=== PATIENT | male | born 1940 | race Caucasian/White ===

== ENCOUNTER 2018-12-01 10:47 | Observation (INO) | payer MEDICARE, SELFPAY ==
[2018-12-01] VITALS (10 sets, daily range): BP systolic 111–143; BP diastolic 58–104; PULSE 62–79; RESP 13–21; TEMP 36.8–37.1; O2SAT 94–100; BMI 27.6
--- NOTE | 2018-12-01 | DI.RAD.S_ITS ---
PROCEDURE: XR ABDOMEN MIN 2V INDICATIONS: diarrhea TECHNIQUE: 2 views of the abdomen were acquired. COMPARISON: [facility], CR, XR CHEST 1V, 12/01/2018, 11:04. FINDINGS: Surgical changes and devices: None. Bowel: No pneumoperitoneum. The bowel gas pattern is abnormal with scattered large and small bowel air-fluid levels, without free air. Soft tissues: No masses; visualized solid organ contours appear normal in size. No suspicious abdominal calcifications. Bones: No suspicious bony abnormalities. IMPRESSION: Scattered nonspecific air-fluid levels within the large and small bowel. The finding is not associated with free air or pneumatosis or evidence of definite intestinal obstruction. Rather, ileus is the likely cause. If underlying peritoneal space infection or colitis is clinically suspected followup by contrast-enhanced CT scanning may be warranted. Dictated by: Edwin Alatorre M.D. on 12/01/2018 at 17:07 Approved by: Edwin Alatorre M.D. on 12/01/2018 at 17:08
--- NOTE | 2018-12-01 11:01 | DI.RAD.S_ITS ---
PROCEDURE: XR CHEST 1V INDICATIONS: suspected sepsis TECHNIQUE: One view of the chest was acquired. COMPARISON: None. FINDINGS: Surgical changes and devices: None. Lungs and pleura: No pleural effusions or pneumothorax. Lungs are clear. Mediastinum: Mediastinal contours appear normal. Heart size is normal. Bones and chest wall: No suspicious bony lesions. Overlying soft tissues appear unremarkable. IMPRESSION: No acute process. Dictated by: Vi Pleitez M.D. on 12/01/2018 at 11:17 Approved by: Vi Pleitez M.D. on 12/01/2018 at 11:17
--- NOTE | 2018-12-01 11:14 | PC.NURSE ---
Pts called, she stated that she will be taking the next fairy form [place] around 1230, she should be here around 1330, cell phone number is , stated that his daughter Desirae is driving up and should be here around 1230, Desirae's cell phone is
--- NOTE | 2018-12-01 11:19 | ED.NAVMDI ---
HPI - Nausea/Vomiting/Diarrhea General Chief complaint: Nausea/Vomiting/Diarrhea Stated complaint: Diarrhea for two days Time Seen by Provider: 12/01/18 10:54 Source: patient Mode of arrival: ambulatory Limitations: no limitations History of Present Illness HPI Narrative: Patient was sent here from [facility], after being found to have copious diarrhea for the last 3 days. Patient was seen in clinic for this and found to have an elevated lactic acid level, and so was airlifted here. Patient has some degree of dementia, and so history is limited by this. His family is not yet arrived. The patient denies abdominal pain, nausea, vomiting, chest pain, shortness of breath, cough, or fevers. He has not noticed blood in his stools. He is not certain whether he was exposed to anybody else with similar symptoms. No other complaints this time. Related Data Home Medications Medication Instructions Recorded Confirmed aspirin 81 mg PO QPM #0 11/04/16 12/01/18 mirabegron [Myrbetriq] 50 mg PO QAM #0 11/04/16 12/01/18 acetaminophen 325 mg PO PRN PRN #0 12/02/16 12/01/18 cholecalciferol (vitamin D3) 5,000 iu PO QPM #0 12/02/16 12/01/18 [Vitamin D3] Fiber (psyllium husk) 2 tab PO BEDTIME 12/01/18 12/01/18 amlodipine 5 mg PO QAM 12/01/18 12/01/18 fenofibrate nanocrystallized 48 mg PO QPM 12/01/18 12/01/18 lisinopril 20 mg PO BEDTIME 12/01/18 12/01/18 melatonin 5 mg PO BEDTIME 12/01/18 12/01/18 polyethylene glycol 3350 [Miralax] 17 g PO DAILY PRN 12/01/18 12/01/18 tamsulosin [Flomax] 0.8 mg PO BEDTIME 12/01/18 12/01/18 venlafaxine 75 mg PO QAM 12/01/18 12/01/18 venlafaxine 150 mg PO QAM 12/01/18 12/01/18 Previous Rx's Medication Instructions Recorded chlorthalidone 25 mg PO QAM #90 tab 12/10/16 levothyroxine 0.175 mg PO QAM #90 tab 07/06/17 Allergies Allergy/AdvReac Type Severity Reaction Status Date / Time solifenacin [From [facility]] AdvReac Unknown change in Verified 12/01/18 11:22 rai status Review of Systems Constitutional Denies chills, Denies fever(s), Denies lethargy and Denies weakness Eyes Denies change in vision, Denies eye discharge, Denies irritation and Denies loss of vision ENT Ears, Nose, Mouth, and Throat: Denies change in voice, Denies neck pain and Denies sore throat Cardiovascular Denies chest pain, Denies irregular heart rhythm, Denies lightheadedness, Denies palpitations, Denies dyspnea, Denies dyspnea on exertion and Denies orthopnea Respiratory Denies cough, Denies dyspnea, Denies dyspnea on exertion and Denies wheezing Gastrointestinal Gastrointestinal: Denies abdominal pain, Denies change in bowel habits, Reports diarrhea, Denies nausea and Denies vomiting Genitourinary Denies hematuria, Denies flank pain, Denies urinary incontinence and Denies urinary urgency Musculoskeletal Denies neck pain Integumentary/Breasts Denies pruritus, Denies erythema, Denies rash and Denies wounds Neurologic Denies confusion, Denies loss of vision and Denies weakness Psychiatric Denies anxiety, Denies confusion, Denies depression, Denies homicidal ideation and Denies suicidal ideation Endocrine Denies palpitations Hematologic/Lymphatic Denies easy bruising Allergic/Immunologic Denies wheezing PFSH Medical History Multiple sclerosis (Acute) HTN (hypertension) (Acute) Dementia (Acute) Surgical History No pertinent past surgical history (Acute) Social History household members: spouse Smoking Status: Unknown if ever smoked Comment: Lives at home with Exam Initial Vital Signs Initial Vital Signs: Vital Signs Temperature 98.2 F 12/01/18 09:57 Pulse Rate 76 12/01/18 09:57 Respiratory Rate 14 12/01/18 09:57 Blood Pressure 140/72 12/01/18 09:57 Pulse Oximetry 94 12/01/18 09:57 Const General: cooperative and well developed Nutritional Appearance: well nourished Orientation: alert, awake and not confused [facility] Head: normocephalic and atraumatic Ears: external ears normal and TM's normal bilaterally Nose: external nose normal and No nasal discharge Face and sinus: sinuses nontender, face symmetric, no sinus tenderness and No dry mucous membranes Mouth: oral mucosae normal and moist mucous membranes Teeth and gingiva: dentition normal Throat: tonsils normal and uvula midline Eyes General: appearance normal, both eyes and all related structures Eyelids: eyelids normal Conjunctivae: conjunctivae normal Sclera: sclerae normal Pupils: PERRL EOM: EOM intact bilaterally Neck Neck: normal visual inspection, trachea midline, No lymphadenopathy, No midline deformity and No JVD Lymphatic: No lymphedema Chest Chest: normal inspection of the chest Resp Effort & Inspection: normal respiratory effort, able to speak in complete sentences, no respiratory distress and no use of accessory muscles Auscultation: clear to auscultation bilaterally, no rales, no rhonchi and no wheezes Cardio Rate: regular rate Rhythm: regular rhythm Heart Sounds: no click, no gallops, no murmurs and no rubs Pulses: normal peripheral pulses GI Inspection: non-distended Palpation: soft, no hepatosplenomegaly, No guarding, No pulsatile mass and No tender Auscultation: normal bowel sounds Back/Spine/Pelvis Back: No CVA tenderness Cervical Spine: cervical ROM normal and No pain with cervical ROM Thoracic/Lumbar Spine: thoracic and lumbar spine normal to inspection Skin General: no rashes or lesions noted, No jaundice and No petechiae Neuro General: alert, awake and no focal motor deficits Speech: speech normal Motor: muscle tone normal throughout Extrem General: full ROM, no clubbing, cyanosis or edema, no pedal edema and no calf tenderness Psych Appearance: well kempt Mental Status: mental status grossly normal Attitude: cooperative Thought Content: normal and suicidality Judgment: judgment good Course Course Narrative: Patient was worked up with labs and treated with IV fluids. He was found to be mildly hypokalemic, and a leukocytosis at 13. The patient was weak and unable to stand up, and although his labs were unremarkable, I felt he should be admitted to the hospital. I spoke with Dr. Hsu regarding this, and she did accept the patient for admission. Orders Ordered: ED Orders 12/01/18 10:45 GI Panel Stat 12/01/18 11:01 XR chest 1V Stat 12/01/18 11:40 Complete Blood Count AUTO DIFF Stat Comprehensive Metabolic Panel Stat Lipase Stat Partial Thromboplastin Time Stat Procalcitonin Stat Prothrombin Time INR Stat Thyroid Stimulating Hormone Stat 12/01/18 11:47 Blood Culture Stat 12/01/18 15:25 MRSA PCR Urgent 12/01/18 15:47 Education, smoking cessation ONGOING 12/02/18 05:00 Complete Blood Count AUTO DIFF Routine Comprehensive Metabolic Panel Routine Acetaminophen (Tylenol) 650 mg PO Q6HR PRN PRN Reason: As Needed for Fever/Mild Pain Hydrocodone Bitart/Acetaminophen ([place] 5/325) 1 tab PO Q4HR PRN PRN Reason: Pain, Moderate (4-6) Amlodipine Besylate (Norvasc) 5 mg PO DAILY [facility] Aspirin (Aspirin Ec) 81 mg PO DAILY [facility] Enoxaparin Sodium (Lovenox) 40 mg SUBCUT DAILY [facility] Fenofibrate (Fenofibrate) 48 mg PO DAILY [facility] Lactated Ringer's (Lactated Ringers) 1,000 mls @ 100 mls/hr IV CONT KELLI Last Admin: 12/01/18 17:36 Dose: 100 mls/hr Potassium Chloride 40 meq/ (Sodium Chloride) 520 mls @ 130 mls/hr IV NOW ONE Stop: 12/01/18 20:29 Last Admin: 12/01/18 17:37 Dose: 130 mls/hr Levothyroxine Sodium (Synthroid) 100 mcg PO 0600 [facility] Levothyroxine Sodium (Synthroid) 75 mcg PO 0600 [facility] Lisinopril (Zestril) 20 mg PO DAILY [facility] Melatonin (Melatonin) 6 mg PO BEDTIME KELLI Non-Formulary Medication ( Myrbetriq 50 Mg) 50 mg PO DAILY [facility] Ondansetron HCl (Zofran) 4 mg IV Q8HR PRN PRN Reason: Nausea And Vomiting Tamsulosin HCl (Flomax) 0.8 mg PO DAILY [facility] Venlafaxine HCl (Effexor Xr) 225 mg PO DAILY [facility] Discontinued Medications Sodium Chloride (Normal Saline 0.9%) 1,000 mls @ 250 mls/hr IV BOLUS ONE Stop: 12/01/18 15:01 Last Infusion: 12/01/18 14:53 Dose: 0 mls/hr Admin: 12/01/18 11:21 Dose: 250 mls/hr Sodium Chloride (Normal Saline 0.9%) 1,000 mls @ 1,000 mls/hr IV BOLUS ONE Stop: 12/01/18 12:17 Last Infusion: 12/01/18 12:28 Dose: 0 mls/hr Admin: 12/01/18 11:23 Dose: 1,000 mls/hr Ondansetron HCl (Zofran) 4 mg IV NOW ONE Stop: 12/01/18 11:33 Last Admin: 12/01/18 11:33 Dose: 4 mg Vital Signs - 8 hr 12/01/18 09:57 12/01/18 11:00 12/01/18 11:30 Temperature 98.2 F Pulse Rate 76 78 70 Respiratory Rate 14 18 14 Blood Pressure 140/72 Blood Pressure [Right Arm] 136/68 129/69 Pulse Oximetry 94 96 98 12/01/18 12:00 12/01/18 12:30 12/01/18 13:00 Temperature Pulse Rate 70 73 71 Respiratory Rate 13 20 16 Blood Pressure Blood Pressure [Right Arm] 135/64 111/58 L 126/98 H Pulse Oximetry 100 98 96 12/01/18 14:47 12/01/18 15:47 12/01/18 16:00 Temperature 98.7 F Pulse Rate 79 72 Respiratory Rate 20 21 Blood Pressure 140/104 H 139/85 Blood Pressure [Right Arm] Pulse Oximetry 97 97 MDM - Nausea/Vomiting/Diarrhea Medical Records Attestation: I reviewed the patient's medical records. Lab Data Attestation: I reviewed the patient's lab results. Result diagrams: 12/01/18 11:40 12/01/18 11:40 Lab Results 12/01/18 12/01/18 12/01/18 Range/Units 10:45 11:40 11:40 WBC 13.0 H (4.5-11.0) X10^3/uL RBC 4.49 L (4.5-5.9) X10^6/uL Hgb 14.0 (13.5-17.5) g/dL Hct 40.3 L (41-53) % MCV 89.9 (80-100) fL MCH 31.1 (26-34) PG MCHC 34.6 (30-36) % RDW 13.4 (11.6-14.8) % Plt Count 282 (150-400) X10^3/uL Neut % (Auto) 89.3 H (50-75) % Lymph % (Auto) 4.3 L (25-40) % [place] % (Auto) 5.1 (3-14) % Eos % (Auto) 1.2 L (2-4) % Baso % (Auto) 0.1 (0-2) % Neut # (Auto) 41366 H (3081-0271) /uL Lymph # (Auto) 600 L (4287-4158) /uL [place] # (Auto) 700 (0-900) /uL Eos # (Auto) 200 (0-450) /uL Baso # (Auto) 0 (0-100) /uL PT 12.7 (10.1-12.7) SECONDS INR 1.1 (0.9-1.3) APTT 26 L (26.4-36.2) SECONDS Sodium (137-145) mmol/L Potassium (3.4-5.1) mmol/L Chloride (98-107) mmol/L Carbon Dioxide (22-32) mmol/L BUN (9-20) mg/dL Creatinine (0.66-1.25) mg/dL Estimated GFR (>60) mL/min BUN/Creatinine Ratio (6-22) Glucose (80-110) mg/dL Lactate (0.7-2.1) mmol/L Calcium (8.4-10.2) mg/dL Total Bilirubin (0.2-1.3) mg/dL AST (17-59) IU/L ALT (21-72) IU/L Alkaline Phosphatase (38-126) U/L Total Protein (6.3-8.2) g/dL Albumin (3.5-5.0) g/dL Globulin (1.7-4.1) g/dL Albumin/Globulin Ratio (1.0-2.8) Lipase (23-300) U/L Procalcitonin (<0.5) ng/mL TSH (0.47-4.68) uIU/mL Nasal Screen MRSA (PCR) (Negative) Stl C. cayetanensis PCR Not detected (Not Detect) Stool Rotavirus (PCR) Not detected (Not Detect) Stool Adenovirus (PCR) Not detected (Not Detect) Stool Astrovirus (PCR) Not detected (Not Detect) Stool Cryptosporidium PCR Not detected (Not Detect) Stl E.coli Shiga Tox PCR Not detected (Not Detect) St Sh/Enteroin Ecoli PCR Not detected (Not Detect) Stool E coli O157 PCR Not detected (Not Detect) Stl Enterotoxigenic E PCR Not detected (Not Detect) Stool EPEC (PCR) Not detected (Not Detect) Stl E. histolytica PCR Not detected (Not Detect) Stool Giardia Lamblia PCR Not detected (Not Detect) Stool Sapovirus (PCR) Not detected (Not Detect) Stl P. shigelloides PCR Not detected (Not Detect) St Y.enterocolitica PCR Not detected (Not Detect) Stool Vibrio (PCR) Not detected (Not Detect) Stl Vibrio cholerae PCR Not detected (Not Detect) Stl Enteroaggr Ecoli PCR Not detected (Not Detect) Stl Norovirus GI/GII PCR Not detected (Not Detect) Campylobacter (PCR) Not detected (Not Detect) C. difficile Tox (PCR) Not detected (Not Detect) Salmonella (PCR) Not detected (Not Detect) 12/01/18 12/01/18 12/01/18 Range/Units 11:40 11:40 11:40 WBC (4.5-11.0) X10^3/uL RBC (4.5-5.9) X10^6/uL Hgb (13.5-17.5) g/dL Hct (41-53) % MCV (80-100) fL MCH (26-34) PG MCHC (30-36) % RDW (11.6-14.8) % Plt Count (150-400) X10^3/uL Neut % (Auto) (50-75) % Lymph % (Auto) (25-40) % [place] % (Auto) (3-14) % Eos % (Auto) (2-4) % Baso % (Auto) (0-2) % Neut # (Auto) (5594-0799) /uL Lymph # (Auto) (6814-7640) /uL [place] # (Auto) (0-900) /uL Eos # (Auto) (0-450) /uL Baso # (Auto) (0-100) /uL PT (10.1-12.7) SECONDS INR (0.9-1.3) APTT (26.4-36.2) SECONDS Sodium 138 (137-145) mmol/L Potassium 3.3 L (3.4-5.1) mmol/L Chloride 97 L (98-107) mmol/L Carbon Dioxide 28 (22-32) mmol/L BUN 37 H (9-20) mg/dL Creatinine 1.50 H (0.66-1.25) mg/dL Estimated GFR 45.4 L (>60) mL/min BUN/Creatinine Ratio 24.7 H (6-22) Glucose 191 H (80-110) mg/dL Lactate (0.7-2.1) mmol/L Calcium 9.4 (8.4-10.2) mg/dL Total Bilirubin 0.6 (0.2-1.3) mg/dL AST 22 (17-59) IU/L ALT 22 (21-72) IU/L Alkaline Phosphatase 52 (38-126) U/L Total Protein 7.8 (6.3-8.2) g/dL Albumin 4.4 (3.5-5.0) g/dL Globulin 3.4 (1.7-4.1) g/dL Albumin/Globulin Ratio 1.3 (1.0-2.8) Lipase 22 L (23-300) U/L Procalcitonin 0.33 (<0.5) ng/mL TSH 7.86 H (0.47-4.68) uIU/mL Nasal Screen MRSA (PCR) (Negative) Stl C. cayetanensis PCR (Not Detect) Stool Rotavirus (PCR) (Not Detect) Stool Adenovirus (PCR) (Not Detect) Stool Astrovirus (PCR) (Not Detect) Stool Cryptosporidium PCR (Not Detect) Stl E.coli Shiga Tox PCR (Not Detect) St Sh/Enteroin Ecoli PCR (Not Detect) Stool E coli O157 PCR (Not Detect) Stl Enterotoxigenic E PCR (Not Detect) Stool EPEC (PCR) (Not Detect) Stl E. histolytica PCR (Not Detect) Stool Giardia Lamblia PCR (Not Detect) Stool Sapovirus (PCR) (Not Detect) Stl P. shigelloides PCR (Not Detect) St Y.enterocolitica PCR (Not Detect) Stool Vibrio (PCR) (Not Detect) Stl Vibrio cholerae PCR (Not Detect) Stl Enteroaggr Ecoli PCR (Not Detect) Stl Norovirus GI/GII PCR (Not Detect) Campylobacter (PCR) (Not Detect) C. difficile Tox (PCR) (Not Detect) Salmonella (PCR) (Not Detect) 12/01/18 12/01/18 Range/Units 15:25 Unknown WBC (4.5-11.0) X10^3/uL RBC (4.5-5.9) X10^6/uL Hgb (13.5-17.5) g/dL Hct (41-53) % MCV (80-100) fL MCH (26-34) PG MCHC (30-36) % RDW (11.6-14.8) % Plt Count (150-400) X10^3/uL Neut % (Auto) (50-75) % Lymph % (Auto) (25-40) % [place] % (Auto) (3-14) % Eos % (Auto) (2-4) % Baso % (Auto) (0-2) % Neut # (Auto) (5445-1903) /uL Lymph # (Auto) (6106-8022) /uL [place] # (Auto) (0-900) /uL Eos # (Auto) (0-450) /uL Baso # (Auto) (0-100) /uL PT (10.1-12.7) SECONDS INR (0.9-1.3) APTT (26.4-36.2) SECONDS Sodium (137-145) mmol/L Potassium (3.4-5.1) mmol/L Chloride (98-107) mmol/L Carbon Dioxide (22-32) mmol/L BUN (9-20) mg/dL Creatinine (0.66-1.25) mg/dL Estimated GFR (>60) mL/min BUN/Creatinine Ratio (6-22) Glucose (80-110) mg/dL Lactate 2.1 (0.7-2.1) mmol/L Calcium (8.4-10.2) mg/dL Total Bilirubin (0.2-1.3) mg/dL AST (17-59) IU/L ALT (21-72) IU/L Alkaline Phosphatase (38-126) U/L Total Protein (6.3-8.2) g/dL Albumin (3.5-5.0) g/dL Globulin (1.7-4.1) g/dL Albumin/Globulin Ratio (1.0-2.8) Lipase (23-300) U/L Procalcitonin (<0.5) ng/mL TSH (0.47-4.68) uIU/mL Nasal Screen MRSA (PCR) Negative for mrsa (Negative) Stl C. cayetanensis PCR (Not Detect) Stool Rotavirus (PCR) (Not Detect) Stool Adenovirus (PCR) (Not Detect) Stool Astrovirus (PCR) (Not Detect) Stool Cryptosporidium PCR (Not Detect) Stl E.coli Shiga Tox PCR (Not Detect) St Sh/Enteroin Ecoli PCR (Not Detect) Stool E coli O157 PCR (Not Detect) Stl Enterotoxigenic E PCR (Not Detect) Stool EPEC (PCR) (Not Detect) Stl E. histolytica PCR (Not Detect) Stool Giardia Lamblia PCR (Not Detect) Stool Sapovirus (PCR) (Not Detect) Stl P. shigelloides PCR (Not Detect) St Y.enterocolitica PCR (Not Detect) Stool Vibrio (PCR) (Not Detect) Stl Vibrio cholerae PCR (Not Detect) Stl Enteroaggr Ecoli PCR (Not Detect) Stl Norovirus GI/GII PCR (Not Detect) Campylobacter (PCR) (Not Detect) C. difficile Tox (PCR) (Not Detect) Salmonella (PCR) (Not Detect) Imaging Data Chest x-ray: Attestation: I personally reviewed and interpreted this imaging study as follows: My impression: Negative Radiologist's impression: PROCEDURE: XR CHEST 1V INDICATIONS: suspected sepsis TECHNIQUE: One view of the chest was acquired. COMPARISON: None. FINDINGS: Surgical changes and devices: None. Lungs and pleura: No pleural effusions or pneumothorax. Lungs are clear. Mediastinum: Mediastinal contours appear normal. Heart size is normal. Bones and chest wall: No suspicious bony lesions. Overlying soft tissues appear unremarkable. IMPRESSION: No acute process. Dictated by: Vi Pleitez M.D. on 12/01/2018 at 11:17 Approved by: Vi Pleitez M.D. on 12/01/2018 at 11:17 ECG Data Attestation: I personally reviewed and interpreted this ECG as follows: (See below) Interpretation: Twelve lead EKG performed December 01, 2018 at 11:01 a.m., as follows: Regular ventricular rhythm with a rate of 76 beats per minute OH interval 172 millisecond QRS duration 117 milliseconds QTC interval [address] T wave changes No ectopy Interpretation: Sinus rhythm with sinus arrhythmia; moderate intraventricular conduction delay; nonspecific T-wave abnormality; borderline EKG as interpreted by ED MD. Discharge Plan Departure Patient Disposition: Admitted As Inpatient Clinical Impression: Diarrhea, Generalized weakness Discharge Date/Time: 12/01/18 14:58 Interventions: ED Discharge Assessment Last Done: 12/01/18 14:47 Admit Date/Time: 12/01/18 14:29 Admit Provider: Chula Hsu
[2018-12-01] MEDS: SODIUM CHLORIDE 0.9% 1,000 ML 250 ML IV (11:21)
[2018-12-01] MEDS: SODIUM CHLORIDE 0.9% 1,000 ML 1000 ML IV (11:23)
--- NOTE | 2018-12-01 11:24 | ED_ITS ---
HPI - Nausea/Vomiting/Diarrhea General Chief complaint: Nausea/Vomiting/Diarrhea Stated complaint: Diarrhea for two days Time Seen by Provider: 12/01/18 10:54 Source: patient Mode of arrival: ambulatory Limitations: no limitations History of Present Illness HPI Narrative: Patient was sent here from [facility], after being found to have copious diarrhea for the last 3 days. Patient was seen in clinic for this and found to have an elevated lactic acid level, and so was airlifted here. Patient has some degree of dementia, and so history is limited by this. His family is not yet arrived. The patient denies abdominal pain, nausea, vomiting , chest pain, shortness of breath, cough, or fevers. He has not noticed blood in his stools. He is not certain whether he was exposed to anybody else with similar symptoms. No other complaints this time. Related Data Home Medications Medication Instructions Recorded Confirmed aspirin 81 mg PO QPM #0 11/04/16 12/01/18 mirabegron [Myrbetriq] 50 mg PO QAM #0 11/04/16 12/01/18 acetaminophen 325 mg PO PRN PRN #0 12/02/16 12/01/18 cholecalciferol (vitamin D3) 5,000 iu PO QPM #0 12/02/16 12/01/18 [Vitamin D3] Fiber (psyllium husk) 2 tab PO BEDTIME 12/01/18 12/01/18 amlodipine 5 mg PO QAM 12/01/18 12/01/18 fenofibrate nanocrystallized 48 mg PO QPM 12/01/18 12/01/18 lisinopril 20 mg PO BEDTIME 12/01/18 12/01/18 melatonin 5 mg PO BEDTIME 12/01/18 12/01/18 polyethylene glycol 3350 [Miralax] 17 g PO DAILY PRN 12/01/18 12/01/18 tamsulosin [Flomax] 0.8 mg PO BEDTIME 12/01/18 12/01/18 venlafaxine 75 mg PO QAM 12/01/18 12/01/18 venlafaxine 150 mg PO QAM 12/01/18 12/01/18 Previous Rx's Medication Instructions Recorded chlorthalidone 25 mg PO QAM #90 tab 12/10/16 levothyroxine 0.175 mg PO QAM #90 tab 07/06/17 Allergies Allergy/AdvReac Type Severity Reaction Status Date / Time solifenacin [From VESICARE] AdvReac Unknown change in Verified 12/01/18 11:22 rai status Review of Systems Constitutional Denies chills, Denies fever(s), Denies lethargy and Denies weakness Eyes Denies change in vision, Denies eye discharge, Denies irritation and Denies loss of vision ENT Ears, Nose, Mouth, and Throat: Denies change in voice, Denies neck pain and Denies sore throat Cardiovascular Denies chest pain, Denies irregular heart rhythm, Denies lightheadedness, Denies palpitations, Denies dyspnea, Denies dyspnea on exertion and Denies orthopnea Respiratory Denies cough, Denies dyspnea, Denies dyspnea on exertion and Denies wheezing Gastrointestinal Gastrointestinal: Denies abdominal pain, Denies change in bowel habits, Reports diarrhea, Denies nausea and Denies vomiting Genitourinary Denies hematuria, Denies flank pain, Denies urinary incontinence and Denies urinary urgency Musculoskeletal Denies neck pain Integumentary/Breasts Denies pruritus, Denies erythema, Denies rash and Denies wounds Neurologic Denies confusion, Denies loss of vision and Denies weakness Psychiatric Denies anxiety, Denies confusion, Denies depression, Denies homicidal ideation and Denies suicidal ideation Endocrine Denies palpitations Hematologic/Lymphatic Denies easy bruising Allergic/Immunologic Denies wheezing PFSH Medical History Multiple sclerosis (Acute) HTN (hypertension) (Acute) Dementia (Acute) Surgical History No pertinent past surgical history (Acute) Social History household members: spouse Smoking Status: Unknown if ever smoked Comment: Lives at home with Exam Initial Vital Signs Initial Vital Signs: Vital Signs Temperature 98.2 F 12/01/18 09:57 Pulse Rate 76 12/01/18 09:57 Respiratory Rate 14 12/01/18 09:57 Blood Pressure 140/72 12/01/18 09:57 Pulse Oximetry 94 12/01/18 09:57 Const General: cooperative and well developed Nutritional Appearance: well nourished Orientation: alert, awake and not confused [facility] Head: normocephalic and atraumatic Ears: external ears normal and TM's normal bilaterally Nose: external nose normal and No nasal discharge Face and sinus: sinuses nontender, face symmetric, no sinus tenderness and No dry mucous membranes Mouth: oral mucosae normal and moist mucous membranes Teeth and gingiva: dentition normal Throat: tonsils normal and uvula midline Eyes General: appearance normal, both eyes and all related structures Eyelids: eyelids normal Conjunctivae: conjunctivae normal Sclera: sclerae normal Pupils: PERRL EOM: EOM intact bilaterally Neck Neck: normal visual inspection, trachea midline, No lymphadenopathy, No midline deformity and No JVD Lymphatic: No lymphedema Chest Chest: normal inspection of the chest Resp Effort & Inspection: normal respiratory effort, able to speak in complete sentences, no respiratory distress and no use of accessory muscles Auscultation: clear to auscultation bilaterally, no rales, no rhonchi and no wheezes Cardio Rate: regular rate Rhythm: regular rhythm Heart Sounds: no click, no gallops, no murmurs and no rubs Pulses: normal peripheral pulses GI Inspection: non-distended Palpation: soft, no hepatosplenomegaly, No guarding, No pulsatile mass and No tender Auscultation: normal bowel sounds Back/Spine/Pelvis Back: No CVA tenderness Cervical Spine: cervical ROM normal and No pain with cervical ROM Thoracic/Lumbar Spine: thoracic and lumbar spine normal to inspection Skin General: no rashes or lesions noted, No jaundice and No petechiae Neuro General: alert, awake and no focal motor deficits Speech: speech normal Motor: muscle tone normal throughout Extrem General: full ROM, no clubbing, cyanosis or edema, no pedal edema and no calf tenderness Psych Appearance: well kempt Mental Status: mental status grossly normal Attitude: cooperative Thought Content: normal and suicidality Judgment: judgment good Course Course Narrative: Patient was worked up with labs and treated with IV fluids. He was found to be mildly hypokalemic, and a leukocytosis at 13. The patient was weak and unable to stand up, and although his labs were unremarkable, I felt he should be admitted to the hospital. I spoke with Dr. Hsu regarding this, and she did accept the patient for admission. Orders Ordered: ED Orders 12/01/18 10:45 GI Panel Stat 12/01/18 11:01 XR chest 1V Stat 12/01/18 11:40 Complete Blood Count AUTO DIFF Stat Comprehensive Metabolic Panel Stat Lipase Stat Partial Thromboplastin Time Stat Procalcitonin Stat Prothrombin Time INR Stat Thyroid Stimulating Hormone Stat 12/01/18 11:47 Blood Culture Stat 12/01/18 15:25 MRSA PCR Urgent 12/01/18 15:47 Education, smoking cessation ONGOING 12/02/18 05:00 Complete Blood Count AUTO DIFF Routine Comprehensive Metabolic Panel Routine Acetaminophen (Tylenol) 650 mg PO Q6HR PRN PRN Reason: As Needed for Fever/Mild Pain Hydrocodone Bitart/Acetaminophen ([place] 5/325) 1 tab PO Q4HR PRN PRN Reason: Pain, Moderate (4-6) Amlodipine Besylate (Norvasc) 5 mg PO DAILY [facility] Aspirin (Aspirin Ec) 81 mg PO DAILY [facility] Enoxaparin Sodium (Lovenox) 40 mg SUBCUT DAILY [facility] Fenofibrate (Fenofibrate) 48 mg PO DAILY [facility] Lactated Ringer's (Lactated Ringers) 1,000 mls @ 100 mls/hr IV CONT [facility] Last Admin: 12/01/18 17:36 Dose: 100 mls/hr Potassium Chloride 40 meq/ (Sodium Chloride) 520 mls @ 130 mls/hr IV NOW ONE Stop: 12/01/18 20:29 Last Admin: 12/01/18 17:37 Dose: 130 mls/hr Levothyroxine Sodium (Synthroid) 100 mcg PO 0600 [facility] Levothyroxine Sodium (Synthroid) 75 mcg PO 0600 [facility] Lisinopril (Zestril) 20 mg PO DAILY [facility] Melatonin (Melatonin) 6 mg PO BEDTIME [facility] Non-Formulary Medication ( Myrbetriq 50 Mg) 50 mg PO DAILY [facility] Ondansetron HCl (Zofran) 4 mg IV Q8HR PRN PRN Reason: Nausea And Vomiting Tamsulosin HCl (Flomax) 0.8 mg PO DAILY [facility] Venlafaxine HCl (Effexor Xr) 225 mg PO DAILY [facility] Discontinued Medications Sodium Chloride (Normal Saline 0.9%) 1,000 mls @ 250 mls/hr IV BOLUS ONE Stop: 12/01/18 15:01 Last Infusion: 12/01/18 14:53 Dose: 0 mls/hr Admin: 12/01/18 11:21 Dose: 250 mls/hr Sodium Chloride (Normal Saline 0.9%) 1,000 mls @ 1,000 mls/hr IV BOLUS ONE Stop: 12/01/18 12:17 Last Infusion: 12/01/18 12:28 Dose: 0 mls/hr Admin: 12/01/18 11:23 Dose: 1,000 mls/hr Ondansetron HCl (Zofran) 4 mg IV NOW ONE Stop: 12/01/18 11:33 Last Admin: 12/01/18 11:33 Dose: 4 mg Vital Signs - 8 hr 12/01/18 09:57 12/01/18 11:00 12/01/18 11:30 Temperature 98.2 F Pulse Rate 76 78 70 Respiratory Rate 14 18 14 Blood Pressure 140/72 Blood Pressure [Right Arm] 136/68 129/69 Pulse Oximetry 94 96 98 12/01/18 12:00 12/01/18 12:30 12/01/18 13:00 Temperature Pulse Rate 70 73 71 Respiratory Rate 13 20 16 Blood Pressure Blood Pressure [Right Arm] 135/64 111/58 L 126/98 H Pulse Oximetry 100 98 96 12/01/18 14:47 12/01/18 15:47 12/01/18 16:00 Temperature 98.7 F Pulse Rate 79 72 Respiratory Rate 20 21 Blood Pressure 140/104 H 139/85 Blood Pressure [Right Arm] Pulse Oximetry 97 97 MDM - Nausea/Vomiting/Diarrhea Medical Records Attestation: I reviewed the patient's medical records. Lab Data Attestation: I reviewed the patient's lab results. Result diagrams: 12/01/18 11:40 12/01/18 11:40 Lab Results 12/01/18 12/01/18 12/01/18 Range/Units 10:45 11:40 11:40 WBC 13.0 H (4.5-11.0) X10^3/uL RBC 4.49 L (4.5-5.9) X10^6/uL Hgb 14.0 (13.5-17.5) g/dL Hct 40.3 L (41-53) % MCV 89.9 (80-100) fL MCH 31.1 (26-34) PG MCHC 34.6 (30-36) % RDW 13.4 (11.6-14.8) % Plt Count 282 (150-400) X10^3/uL Neut % (Auto) 89.3 H (50-75) % Lymph % (Auto) 4.3 L (25-40) % Cook % (Auto) 5.1 (3-14) % Eos % (Auto) 1.2 L (2-4) % Baso % (Auto) 0.1 (0-2) % Neut # (Auto) 21924 H (5022-3127) /uL Lymph # (Auto) 600 L (8214-9487) /uL Cook # (Auto) 700 (0-900) /uL Eos # (Auto) 200 (0-450) /uL Baso # (Auto) 0 (0-100) /uL PT 12.7 (10.1-12.7) SECONDS INR 1.1 (0.9-1.3) APTT 26 L (26.4-36.2) SECONDS Sodium (137-145) mmol/L Potassium (3.4-5.1) mmol/L Chloride (98-107) mmol/L Carbon Dioxide (22-32) mmol/L BUN (9-20) mg/dL Creatinine (0.66-1.25) mg/dL Estimated GFR (>60) mL/min BUN/Creatinine Ratio (6-22) Glucose (80-110) mg/dL Lactate (0.7-2.1) mmol/L Calcium (8.4-10.2) mg/dL Total Bilirubin (0.2-1.3) mg/dL AST (17-59) IU/L ALT (21-72) IU/L Alkaline Phosphatase (38-126) U/L Total Protein (6.3-8.2) g/dL Albumin (3.5-5.0) g/dL Globulin (1.7-4.1) g/dL Albumin/Globulin Ratio (1.0-2.8) Lipase (23-300) U/L Procalcitonin (<0.5) ng/mL TSH (0.47-4.68) uIU/mL Nasal Screen MRSA (PCR) (Negative) Stl C. cayetanensis PCR Not detected (Not Detect) Stool Rotavirus (PCR) Not detected (Not Detect) Stool Adenovirus (PCR) Not detected (Not Detect) Stool Astrovirus (PCR) Not detected (Not Detect) Stool Cryptosporidium PCR Not detected (Not Detect) Stl E.coli Shiga Tox PCR Not detected (Not Detect) St Sh/Enteroin Ecoli PCR Not detected (Not Detect) Stool E coli O157 PCR Not detected (Not Detect) Stl Enterotoxigenic E PCR Not detected (Not Detect) Stool EPEC (PCR) Not detected (Not Detect) Stl E. histolytica PCR Not detected (Not Detect) Stool Giardia Lamblia PCR Not detected (Not Detect) Stool Sapovirus (PCR) Not detected (Not Detect) Stl P. shigelloides PCR Not detected (Not Detect) St Y.enterocolitica PCR Not detected (Not Detect) Stool Vibrio (PCR) Not detected (Not Detect) Stl Vibrio cholerae PCR Not detected (Not Detect) Stl Enteroaggr Ecoli PCR Not detected (Not Detect) Stl Norovirus GI/GII PCR Not detected (Not Detect) Campylobacter (PCR) Not detected (Not Detect) C. difficile Tox (PCR) Not detected (Not Detect) Salmonella (PCR) Not detected (Not Detect) 12/01/18 12/01/18 12/01/18 Range/Units 11:40 11:40 11:40 WBC (4.5-11.0) X10^3/uL RBC (4.5-5.9) X10^6/uL Hgb (13.5-17.5) g/dL Hct (41-53) % MCV (80-100) fL MCH (26-34) PG MCHC (30-36) % RDW (11.6-14.8) % Plt Count (150-400) X10^3/uL Neut % (Auto) (50-75) % Lymph % (Auto) (25-40) % Cook % (Auto) (3-14) % Eos % (Auto) (2-4) % Baso % (Auto) (0-2) % Neut # (Auto) (2798-5406) /uL Lymph # (Auto) (8138-1365) /uL Cook # (Auto) (0-900) /uL Eos # (Auto) (0-450) /uL Baso # (Auto) (0-100) /uL PT (10.1-12.7) SECONDS INR (0.9-1.3) APTT (26.4-36.2) SECONDS Sodium 138 (137-145) mmol/L Potassium 3.3 L (3.4-5.1) mmol/L Chloride 97 L (98-107) mmol/L Carbon Dioxide 28 (22-32) mmol/L BUN 37 H (9-20) mg/dL Creatinine 1.50 H (0.66-1.25) mg/dL Estimated GFR 45.4 L (>60) mL/min BUN/Creatinine Ratio 24.7 H (6-22) Glucose 191 H (80-110) mg/dL Lactate (0.7-2.1) mmol/L Calcium 9.4 (8.4-10.2) mg/dL Total Bilirubin 0.6 (0.2-1.3) mg/dL AST 22 (17-59) IU/L ALT 22 (21-72) IU/L Alkaline Phosphatase 52 (38-126) U/L Total Protein 7.8 (6.3-8.2) g/dL Albumin 4.4 (3.5-5.0) g/dL Globulin 3.4 (1.7-4.1) g/dL Albumin/Globulin Ratio 1.3 (1.0-2.8) Lipase 22 L (23-300) U/L Procalcitonin 0.33 (<0.5) ng/mL TSH 7.86 H (0.47-4.68) uIU/mL Nasal Screen MRSA (PCR) (Negative) Stl C. cayetanensis PCR (Not Detect) Stool Rotavirus (PCR) (Not Detect) Stool Adenovirus (PCR) (Not Detect) Stool Astrovirus (PCR) (Not Detect) Stool Cryptosporidium PCR (Not Detect) Stl E.coli Shiga Tox PCR (Not Detect) St Sh/Enteroin Ecoli PCR (Not Detect) Stool E coli O157 PCR (Not Detect) Stl Enterotoxigenic E PCR (Not Detect) Stool EPEC (PCR) (Not Detect) Stl E. histolytica PCR (Not Detect) Stool Giardia Lamblia PCR (Not Detect) Stool Sapovirus (PCR) (Not Detect) Stl P. shigelloides PCR (Not Detect) St Y.enterocolitica PCR (Not Detect) Stool Vibrio (PCR) (Not Detect) Stl Vibrio cholerae PCR (Not Detect) Stl Enteroaggr Ecoli PCR (Not Detect) Stl Norovirus GI/GII PCR (Not Detect) Campylobacter (PCR) (Not Detect) C. difficile Tox (PCR) (Not Detect) Salmonella (PCR) (Not Detect) 12/01/18 12/01/18 Range/Units 15:25 Unknown WBC (4.5-11.0) X10^3/uL RBC (4.5-5.9) X10^6/uL Hgb (13.5-17.5) g/dL Hct (41-53) % MCV (80-100) fL MCH (26-34) PG MCHC (30-36) % RDW (11.6-14.8) % Plt Count (150-400) X10^3/uL Neut % (Auto) (50-75) % Lymph % (Auto) (25-40) % Cook % (Auto) (3-14) % Eos % (Auto) (2-4) % Baso % (Auto) (0-2) % Neut # (Auto) (8961-8638) /uL Lymph # (Auto) (3445-8421) /uL Cook # (Auto) (0-900) /uL Eos # (Auto) (0-450) /uL Baso # (Auto) (0-100) /uL PT (10.1-12.7) SECONDS INR (0.9-1.3) APTT (26.4-36.2) SECONDS Sodium (137-145) mmol/L Potassium (3.4-5.1) mmol/L Chloride (98-107) mmol/L Carbon Dioxide (22-32) mmol/L BUN (9-20) mg/dL Creatinine (0.66-1.25) mg/dL Estimated GFR (>60) mL/min BUN/Creatinine Ratio (6-22) Glucose (80-110) mg/dL Lactate 2.1 (0.7-2.1) mmol/L Calcium (8.4-10.2) mg/dL Total Bilirubin (0.2-1.3) mg/dL AST (17-59) IU/L ALT (21-72) IU/L Alkaline Phosphatase (38-126) U/L Total Protein (6.3-8.2) g/dL Albumin (3.5-5.0) g/dL Globulin (1.7-4.1) g/dL Albumin/Globulin Ratio (1.0-2.8) Lipase (23-300) U/L Procalcitonin (<0.5) ng/mL TSH (0.47-4.68) uIU/mL Nasal Screen MRSA (PCR) Negative for mrsa (Negative) Stl C. cayetanensis PCR (Not Detect) Stool Rotavirus (PCR) (Not Detect) Stool Adenovirus (PCR) (Not Detect) Stool Astrovirus (PCR) (Not Detect) Stool Cryptosporidium PCR (Not Detect) Stl E.coli Shiga Tox PCR (Not Detect) St Sh/Enteroin Ecoli PCR (Not Detect) Stool E coli O157 PCR (Not Detect) Stl Enterotoxigenic E PCR (Not Detect) Stool EPEC (PCR) (Not Detect) Stl E. histolytica PCR (Not Detect) Stool Giardia Lamblia PCR (Not Detect) Stool Sapovirus (PCR) (Not Detect) Stl P. shigelloides PCR (Not Detect) St Y.enterocolitica PCR (Not Detect) Stool Vibrio (PCR) (Not Detect) Stl Vibrio cholerae PCR (Not Detect) Stl Enteroaggr Ecoli PCR (Not Detect) Stl Norovirus GI/GII PCR (Not Detect) Campylobacter (PCR) (Not Detect) C. difficile Tox (PCR) (Not Detect) Salmonella (PCR) (Not Detect) Imaging Data Chest x-ray: Attestation: I personally reviewed and interpreted this imaging study as follows: My impression: Negative Radiologist's impression: PROCEDURE: XR CHEST 1V INDICATIONS: suspected sepsis TECHNIQUE: One view of the chest was acquired. COMPARISON: None. FINDINGS: Surgical changes and devices: None. Lungs and pleura: No pleural effusions or pneumothorax. Lungs are clear. Mediastinum: Mediastinal contours appear normal. Heart size is normal. Bones and chest wall: No suspicious bony lesions. Overlying soft tissues appear unremarkable. IMPRESSION: No acute process. Dictated by: Vi Pleitez M.D. on 12/01/2018 at 11:17 Approved by: Vi Pleitez M.D. on 12/01/2018 at 11:17 ECG Data Attestation: I personally reviewed and interpreted this ECG as follows: (See below) Interpretation: Twelve lead EKG performed December 01, 2018 at 11:01 a.m., as follows: Regular ventricular rhythm with a rate of 76 beats per minute W[place] interval 172 millisecond QRS duration 117 milliseconds QTC interval [address] T wave changes No ectopy Interpretation: Sinus rhythm with sinus arrhythmia; moderate intraventricular conduction delay; nonspecific T-wave abnormality; borderline EKG as interpreted by ED MD. Discharge Plan Departure Patient Disposition: Admitted As Inpatient Clinical Impression: Diarrhea, Generalized weakness Discharge Date/Time: 12/01/18 14:58 Interventions: ED Discharge Assessment Last Done: 12/01/18 14:47 Admit Date/Time: 12/01/18 14:29 Admit Provider: Chula Hsu
[2018-12-01] MEDS: ONDANSETRON 4 MG/2 ML INJ IV (11:33)
[2018-12-01 11:59] LABS: Add Manual Diff / Slide Review NO; Basophils Absolute Auto 0 /uL (0-100); Basophils Percent Auto 0.1 % (0-2); Eosinophils Absolute Auto 200 /uL (0-450); Eosinophils Percent Auto 1.2 % (2-4); Hematocrit 40.3 % (41-53); Lymphocytes Absolute Auto 600 /uL (1100-4500); Lymphocytes Percent Auto 4.3 % (25-40); Mean Corpuscular HGB Conc 34.6 % (30-36); Mean Corpuscular Hemoglobin 31.1 PG (26-34); Mean Corpuscular Volume 89.9 fL (80-100); Monocytes Absolute Auto 700 /uL (0-900); Monocytes Percent Auto 5.1 % (3-14); Neutrophils Absolute Auto 11600 /uL (1500-7000); Neutrophils Percent Auto 89.3 % (50-75); Platelet Count 282 X10^3/uL (150-400); Red Blood Cell Count 4.49 X10^6/uL (4.5-5.9); Red Cell Distribution Width 13.4 % (11.6-14.8)
[2018-12-01 12:06] LABS: INR 1.1 (0.9-1.3); Prothrombin Time 12.7 SECONDS (10.1-12.7)
[2018-12-01 12:09] LABS: PTT Partial Thromboplastin Tim 26 SECONDS (26.4-36.2)
[2018-12-01 12:14] LABS: Alanine Aminotransferase 22 IU/L (21-72); Albumin 4.4 g/dL (3.5-5.0); Albumin Globulin Ratio 1.3 (1.0-2.8); Alkaline Phosphatase 52 U/L (38-126); Aspartate Aminotransferase 22 IU/L (17-59); BUN Creatinine Ratio 24.7 (6-22); Bilirubin Total 0.6 mg/dL (0.2-1.3); Blood Urea Nitrogen 37 mg/dL (9-20); Calcium 9.4 mg/dL (8.4-10.2); Carbon Dioxide 28 mmol/L (22-32); Chloride 97 mmol/L (98-107); Estimated Glomerular Filt Rate 45.4 mL/min (>60); Globulin 3.4 g/dL (1.7-4.1); Glucose 191 mg/dL (80-110); HEMOLYSIS 24 (0-50); Lipase 22 U/L (23-300); Potassium 3.3 mmol/L (3.4-5.1); Sodium 138 mmol/L (137-145); Total Protein 7.8 g/dL (6.3-8.2)
[2018-12-01 12:15] LABS: Lactate (Lactic Acid) 2.1 mmol/L (0.7-2.1)
[2018-12-01 12:33] LABS: Adenovirus F 40/41 Not Detected (Not Detect); Astrovirus Not Detected (Not Detect); Campylobacter Not Detected (Not Detect); Clostridium difficile toxin AB Not Detected (Not Detect); Cryptosporidium Not Detected (Not Detect); Cyclospora cayetanensis Not Detected (Not Detect); Entamoeba histolytica Not Detected (Not Detect); Enteroaggregative E.coli Not Detected (Not Detect); Enteropathogenic E.coli Not Detected (Not Detect); Enterotoxigenic E.coli It/st Not Detected (Not Detect); Giardia lamblia Not Detected (Not Detect); Norovirus GI/GII Not Detected (Not Detect); Plesiomonsa shigelloides Not Detected (Not Detect); Rotavirus A Not Detected (Not Detect); Salmonella Not Detected (Not Detect); Sapovirus Not Detected (Not Detect); Shiga-like toxin-prod E.coli Not Detected (Not Detect); Shigella/Enteroinvasive E.coli Not Detected (Not Detect); Vibrio Not Detected (Not Detect); Vibrio cholerae Not Detected (Not Detect); Yersinia enterocolitica Not Detected (Not Detect)
[2018-12-01 12:35] LABS: Procalcitonin 0.33 ng/mL (<0.5)
[2018-12-01 15:44] LABS: Thyroid Stimulating Hormone 7.86 uIU/mL (0.47-4.68)
--- NOTE | 2018-12-01 15:57 | PM.HP.1 ---
History of Present Illness Date Patient Seen: 12/01/18 Chief complaint: Diarrhea for two days Narrative: Patient is a 78-year-old male with a history of multiple sclerosis, hypertension, hyperlipidemia who has chronic constipation. He usually takes fiber and MiraLax for constipation on Thursday which was his birthday [place] Patient had a hamburger and oysters without difficulty. Following that he was ?quite fatigued.? His notes that this is not uncommon and he typically will rest and get better. On Thursday 3 days prior to admission the patient developed diarrhea. She describes multiple BMs of 4-7 per day by yesterday he was having BMs every 2 hr per they were formed stools and liquid. He had no blood in the stool. He had no crampy abdominal pain. He had no fever or chills the patient had no associated nausea or vomiting. They are not on well water. There have been no recent antibiotics. There has been no recent travel. There are no others ill at home. Given the patient's significant diarrhea he went to the clinic on the [place] where his lactate was markedly elevated. Patient was airlifted to [facility] for further evaluation. At [facility] he underwent a panel for diarrhea. His C diff was negative viral and ova and parasite cultures thus far negative. The patient was somewhat weak. He was given IV hydration. He was found to be hypokalemic. He had a mildly elevated white count patient was admitted to the hospital for further evaluation. Of note the patient has a ventral hernia. notes it has been there for some time and there has been no intervention. The patient does not smoke or drink alcohol. He is adopted and does not know his family history. Patient History Medical History Multiple sclerosis (Acute) HTN (hypertension) (Acute) Dementia (Acute) Surgical History No pertinent past surgical history (Acute) Family & Social History Safety & Behavioral: Feels Safe in Current Yes Environment Been Physically Hurt or No Threatened By a Person Tobacco & Substance use: Smoking Status Unknown if ever smoked alcohol intake frequency 0-2 drinks per day Substance Use Type does not use Meds Home Medications Medication Instructions Recorded Confirmed Type aspirin 81 mg PO QPM #0 11/04/16 12/01/18 History mirabegron [Myrbetriq] 50 mg PO QAM #0 11/04/16 12/01/18 History acetaminophen 325 mg PO PRN PRN #0 12/02/16 12/01/18 History cholecalciferol (vitamin D3) 5,000 iu PO QPM #0 12/02/16 12/01/18 History [Vitamin D3] chlorthalidone 25 mg PO QAM #90 tab 12/10/16 12/01/18 Rx levothyroxine 0.175 mg PO QAM #90 tab 07/06/17 12/01/18 Rx Fiber (psyllium husk) 2 tab PO BEDTIME 12/01/18 12/01/18 History amlodipine 5 mg PO QAM 12/01/18 12/01/18 History fenofibrate nanocrystallized 48 mg PO QPM 12/01/18 12/01/18 History lisinopril 20 mg PO BEDTIME 12/01/18 12/01/18 History melatonin 5 mg PO BEDTIME 12/01/18 12/01/18 History polyethylene glycol 3350 [Miralax] 17 g PO DAILY PRN 12/01/18 12/01/18 History tamsulosin [Flomax] 0.8 mg PO BEDTIME 12/01/18 12/01/18 History venlafaxine 75 mg PO QAM 12/01/18 12/01/18 History venlafaxine 150 mg PO QAM 12/01/18 12/01/18 History Allergies Allergy/AdvReac Type Severity Reaction Status Date / Time solifenacin [From VESICARE] AdvReac Unknown change in Verified 12/01/18 11:22 rai status Review of Systems Review of Systems All systems reviewed & are unremarkable except as noted in HPI and below Exam Vital Signs (past 8 hours): - 12/01/18 09:57 12/01/18 11:00 12/01/18 11:30 Temperature 98.2 F Pulse Rate 76 78 70 Respiratory Rate 14 18 14 Blood Pressure 140/72 Blood Pressure [Right Arm] 136/68 129/69 Pulse Oximetry 94 96 98 12/01/18 12:00 12/01/18 12:30 12/01/18 13:00 Temperature Pulse Rate 70 73 71 Respiratory Rate 13 20 16 Blood Pressure Blood Pressure [Right Arm] 135/64 111/58 L 126/98 H Pulse Oximetry 100 98 96 12/01/18 14:47 Temperature Pulse Rate 79 Respiratory Rate 20 Blood Pressure 140/104 H Blood Pressure [Right Arm] Pulse Oximetry 97 Oxygen Delivery Method Room Air Narrative Exam Narrative: Pleasant elderly male resting comfortably in no obvious distress HEENT: Normocephalic atraumatic oropharynx is clear neck is supple Lungs: Clear to auscultation Cardiac exam: Regular rate and rhythm normal S1 and S2 Abdomen: Protuberant ventral hernia palpated, no other masses, normoactive bowel tones no hepatosplenomegaly. There is no board-like rigidity. There is no rebound tenderness. Extremities: No Neuro exam: Cranial nerves are intact, strength symmetric and equal, sensations grossly intact, reflexes are brisk and equal, gait is not assessed Psychiatric exam: Patient is awake and answers questions, he is slow to respond. Objective Labs Result Diagrams: 12/01/18 11:40 12/01/18 11:40 Labs: Laboratory Results - last 24 hr 12/01/18 12/01/18 12/01/18 10:45 11:40 11:40 WBC 13.0 H RBC 4.49 L Hgb 14.0 Hct 40.3 L MCV 89.9 MCH 31.1 MCHC 34.6 RDW 13.4 Plt Count 282 Neut % (Auto) 89.3 H Lymph % (Auto) 4.3 L [place] % (Auto) 5.1 Eos % (Auto) 1.2 L Baso % (Auto) 0.1 Neut # (Auto) 82171 H Lymph # (Auto) 600 L [place] # (Auto) 700 Eos # (Auto) 200 Baso # (Auto) 0 PT 12.7 INR 1.1 APTT 26 L Sodium Potassium Chloride Carbon Dioxide BUN Creatinine Estimated GFR BUN/Creatinine Ratio Glucose Lactate Calcium Total Bilirubin AST ALT Alkaline Phosphatase Total Protein Albumin Globulin Albumin/Globulin Ratio Lipase Procalcitonin TSH Stl C. cayetanensis PCR Not detected Stool Rotavirus (PCR) Not detected Stool Adenovirus (PCR) Not detected Stool Astrovirus (PCR) Not detected Stool Cryptosporidium PCR Not detected Stl E.coli Shiga Tox PCR Not detected St Sh/Enteroin Ecoli PCR Not detected Stool E coli O157 PCR Not detected Stl Enterotoxigenic E PCR Not detected Stool EPEC (PCR) Not detected Stl E. histolytica PCR Not detected Stool Giardia Lamblia PCR Not detected Stool Sapovirus (PCR) Not detected Stl P. shigelloides PCR Not detected St Y.enterocolitica PCR Not detected Stool Vibrio (PCR) Not detected Stl Vibrio cholerae PCR Not detected Stl Enteroaggr Ecoli PCR Not detected Stl Norovirus GI/GII PCR Not detected Campylobacter (PCR) Not detected C. difficile Tox (PCR) Not detected Salmonella (PCR) Not detected 12/01/18 12/01/18 12/01/18 11:40 11:40 11:40 WBC RBC Hgb Hct MCV MCH MCHC RDW Plt Count Neut % (Auto) Lymph % (Auto) [place] % (Auto) Eos % (Auto) Baso % (Auto) Neut # (Auto) Lymph # (Auto) [place] # (Auto) Eos # (Auto) Baso # (Auto) PT INR APTT Sodium 138 Potassium 3.3 L Chloride 97 L Carbon Dioxide 28 BUN 37 H Creatinine 1.50 H Estimated GFR 45.4 L BUN/Creatinine Ratio 24.7 H Glucose 191 H Lactate Calcium 9.4 Total Bilirubin 0.6 AST 22 ALT 22 Alkaline Phosphatase 52 Total Protein 7.8 Albumin 4.4 Globulin 3.4 Albumin/Globulin Ratio 1.3 Lipase 22 L Procalcitonin 0.33 TSH 7.86 H Stl C. cayetanensis PCR Stool Rotavirus (PCR) Stool Adenovirus (PCR) Stool Astrovirus (PCR) Stool Cryptosporidium PCR Stl E.coli Shiga Tox PCR St Sh/Enteroin Ecoli PCR Stool E coli O157 PCR Stl Enterotoxigenic E PCR Stool EPEC (PCR) Stl E. histolytica PCR Stool Giardia Lamblia PCR Stool Sapovirus (PCR) Stl P. shigelloides PCR St Y.enterocolitica PCR Stool Vibrio (PCR) Stl Vibrio cholerae PCR Stl Enteroaggr Ecoli PCR Stl Norovirus GI/GII PCR Campylobacter (PCR) C. difficile Tox (PCR) Salmonella (PCR) 12/01/18 Unknown WBC RBC Hgb Hct MCV MCH MCHC RDW Plt Count Neut % (Auto) Lymph % (Auto) [place] % (Auto) Eos % (Auto) Baso % (Auto) Neut # (Auto) Lymph # (Auto) [place] # (Auto) Eos # (Auto) Baso # (Auto) PT INR APTT Sodium Potassium Chloride Carbon Dioxide BUN Creatinine Estimated GFR BUN/Creatinine Ratio Glucose Lactate 2.1 Calcium Total Bilirubin AST ALT Alkaline Phosphatase Total Protein Albumin Globulin Albumin/Globulin Ratio Lipase Procalcitonin TSH Stl C. cayetanensis PCR Stool Rotavirus (PCR) Stool Adenovirus (PCR) Stool Astrovirus (PCR) Stool Cryptosporidium PCR Stl E.coli Shiga Tox PCR St Sh/Enteroin Ecoli PCR Stool E coli O157 PCR Stl Enterotoxigenic E PCR Stool EPEC (PCR) Stl E. histolytica PCR Stool Giardia Lamblia PCR Stool Sapovirus (PCR) Stl P. shigelloides PCR St Y.enterocolitica PCR Stool Vibrio (PCR) Stl Vibrio cholerae PCR Stl Enteroaggr Ecoli PCR Stl Norovirus GI/GII PCR Campylobacter (PCR) C. difficile Tox (PCR) Salmonella (PCR) Assessment & Plan (1) Diarrhea: Problem details: Patient presents with diarrhea, present on admission. No evidence of infectious etiology at this time. Will hold fiber and MiraLax. Will also obtain an x-ray to rule out dilated loops of bowel. Will continue to follow up on laboratory studies. Qualifiers: Diarrhea type: unspecified type Qualified Code(s): R19.7 - Diarrhea, unspecified Current visit: Yes Status: Acute (2) Generalized weakness: Problem details: Suspect related to diarrhea and dehydration. Will continue IV fluids Current visit: Yes Status: Acute (3) Multiple sclerosis: Problem details: Patient will continue on his usual medications for MS including M why RB ET SOLOMON ugalde Current visit: Yes Status: Acute (4) HTN (hypertension): Problem details: Patient is hypertensive, present on admission, acute Will continue usual lisinopril Current visit: No Status: Acute (5) Dementia: Current visit: No Status: Acute (6) Acquired hypothyroidism: Problem details: TSH is pending and will continue usual thyroid dose. Current visit: No Status: None (7) Mixed hyperlipidemia: Problem details: Patient has known hyperlipidemia. Will continue fenofibrate Current visit: No Status: None (8) Chronic constipation: Problem details: Not initiate this time. Hold fiber Current visit: No Status: None (9) Hypokalemia: Problem details: Will replace potassium Current visit: Yes Status: Acute (10) Acute kidney injury: Problem details: Acute kidney injury, present on admission, acute suspect due to diarrhea and dehydration. Will continue IV fluids. Current visit: Yes Status: Acute Plan: Assessment/Plan Narrative: Patient reports a full code will note that his record accordingly.
[2018-12-01] MEDS: LACTATED RINGERS 1,000 ML 100 ML IV (17:36)
[2018-12-01] MEDS: POTASSIUM CHLORIDE 40 MEQ in SODIUM CHLORIDE 0.9% 500 ML 130 ML IV (17:37)
--- NOTE | 2018-12-01 19:43 | PC.NURSE ---
1930- Patient had not voided yet. Bladder scan showed 400cc. Patient states he does not always get a urge to urinate and it is noted that he does take flomax. Patient assisted with the urinal and was able to void 150cc. Will monitor.
[2018-12-01] MEDS: MELATONIN 3 MG TABLET 6 MG PO (21:47)
[2018-12-02] VITALS (11 sets, daily range): BP systolic 135–161; BP diastolic 59–77; PULSE 52–70; RESP 16–20; TEMP 36.1–37.4; O2SAT 93–98
[2018-12-02 05:17] LABS: Add Manual Diff / Slide Review NO; Basophils Absolute Auto 0 /uL (0-100); Basophils Percent Auto 0.3 % (0-2); Eosinophils Absolute Auto 200 /uL (0-450); Hematocrit 37.9 % (41-53); Lymphocytes Absolute Auto 900 /uL (1100-4500); Mean Corpuscular HGB Conc 34.3 % (30-36); Mean Corpuscular Volume 90.3 fL (80-100); Monocytes Absolute Auto 600 /uL (0-900); Monocytes Percent Auto 7.4 % (3-14); Neutrophils Absolute Auto 6600 /uL (1500-7000); Neutrophils Percent Auto 79.3 % (50-75); Platelet Count 220 X10^3/uL (150-400); Red Cell Distribution Width 13.1 % (11.6-14.8); White Blood Cell Count 8.3 X10^3/uL (4.5-11.0)
[2018-12-02 05:24] LABS: Alanine Aminotransferase 24 IU/L (21-72); Albumin 3.6 g/dL (3.5-5.0); Albumin Globulin Ratio 1.2 (1.0-2.8); Alkaline Phosphatase 49 U/L (38-126); Aspartate Aminotransferase 25 IU/L (17-59); BUN Creatinine Ratio 22.5 (6-22); Bilirubin Total 0.4 mg/dL (0.2-1.3); Blood Urea Nitrogen 27 mg/dL (9-20); Calcium 8.5 mg/dL (8.4-10.2); Carbon Dioxide 25 mmol/L (22-32); Chloride 104 mmol/L (98-107); Estimated Glomerular Filt Rate 58.7 mL/min (>60); Globulin 3.1 g/dL (1.7-4.1); Glucose 153 mg/dL (80-110); HEMOLYSIS 21 (0-50); Potassium 3.1 mmol/L (3.4-5.1); Sodium 136 mmol/L (137-145); Total Protein 6.7 g/dL (6.3-8.2)
[2018-12-02] MEDS: LEVOTHYROXINE 100 MCG TABLET PO (06:15)
[2018-12-02] MEDS: LEVOTHYROXINE 75 MCG TABLET PO (06:15)
--- NOTE | 2018-12-02 06:38 | PC.NURSE ---
Patient incontinent loose mucoid stool x2, voided 150ml concentrated urine in urinal and once incontinent, UAC collected and sent to lab. Patient denies pain or abdominal discomfort. VSS. LR @ 100ml/hr.
[2018-12-02] MEDS: LACTATED RINGERS 1,000 ML 100 ML IV (07:54)
--- NOTE | 2018-12-02 08:24 | CM.DANOTE ---
DCP: Case received, EMR reviewed and met with patient. Introduced self and role. Information obtained by , Etelvina. DCP template completed with information currently available, as well. Patient is a 78 year old male who admitted yesterday afternoon to the care of the hospitalist team. PCP: Dr. Grimaldo. Payer: confirmed: [facility]. Patient came to hospital via air lift from [facility], due to copious diarrhea. Patient has history of MS. Patient carries diagnosis of hypokalemia, dehydration, increased lactate level. Patient was awake when this case reviewer placed name on board, but unable to answer many questions. Called , Etelvina. She stated that he is pretty independent at home. She stated that there are days where he is weaker, secondary to his MS. He uses a cane if he goes outside, which is seldom. He is also going to outpatient physical therapy there on the [place]. She has concerns, that the hospital stay will make him weaker. Discussed having inpatient physical therapy work with them. Can then determine if home health will be a good fit for him, versus short term skilled stay. very supportive and involved. P: DCP to follow closely. To be determined at this point if he will need home health/skilled. Laurel Bragg RN/Client Relations Specialist
[2018-12-02] MEDS: VENLAFAXINE ER 75 MG CAP 225 MG PO (08:45)
[2018-12-02] MEDS: TAMSULOSIN 0.4 MG CAPSULE 0.8 MG PO (08:46)
[2018-12-02] MEDS: LISINOPRIL 20 MG TABLET PO (08:46)
[2018-12-02] MEDS: ASPIRIN EC 81 MG TABLET PO (09:02)
[2018-12-02] MEDS: FENOFIBRATE 48 MG TABLET PO (09:02)
[2018-12-02] MEDS: AMLODIPINE 5 MG TABLET PO (09:03)
[2018-12-02] MEDS: ENOXAPARIN 40 MG/0.4 ML SYRINGE SUBCUT (09:04)
--- NOTE | 2018-12-02 12:13 | P.PN_ITS ---
Subjective Date Patient Seen: 12/02/18 Interval history: Events reviewed. Patient admitted with abrupt onset nausea and vomiting. He had 2 BM's last night and none today. Patient has had no further nausea or vomiting. He is anxious to progress his diet. He is resting comfortably and denies shortness of breath, abdominal pain, or nausea. Exam Vital Signs (past 8 hours): - 12/02/18 04:36 12/02/18 07:27 12/02/18 08:46 Temperature 97.0 F L 98.6 F Pulse Rate 62 52 L 70 Respiratory Rate 16 18 Blood Pressure 147/70 H 139/61 139/61 Pulse Oximetry 95 93 Oxygen Delivery Method Room Air Narrative Exam Narrative: Pleasant male resting comfortably and in no acute distress Lungs: Clear to auscultation CV: RRR nl Sl S2 2/6 LULI Abd: distended, soft/non tender, no palpable masses, normoactive bowel tones Ext: trace edema Objective Labs Result Diagrams: 12/02/18 04:50 12/02/18 04:50 Labs: Laboratory Results - last 24 hr 12/01/18 12/01/18 12/01/18 10:45 11:40 11:40 WBC RBC Hgb Hct MCV MCH MCHC RDW Plt Count Neut % (Auto) Lymph % (Auto) [place] % (Auto) Eos % (Auto) Baso % (Auto) Neut # (Auto) Lymph # (Auto) [place] # (Auto) Eos # (Auto) Baso # (Auto) Sodium 138 Potassium 3.3 L Chloride 97 L Carbon Dioxide 28 BUN 37 H Creatinine 1.50 H Estimated GFR 45.4 L BUN/Creatinine Ratio 24.7 H Glucose 191 H Lactate Calcium 9.4 Total Bilirubin 0.6 AST 22 ALT 22 Alkaline Phosphatase 52 Total Protein 7.8 Albumin 4.4 Globulin 3.4 Albumin/Globulin Ratio 1.3 Lipase 22 L Procalcitonin 0.33 TSH Nasal Screen MRSA (PCR) Stl C. cayetanensis PCR Not detected Stool Rotavirus (PCR) Not detected Stool Adenovirus (PCR) Not detected Stool Astrovirus (PCR) Not detected Stool Cryptosporidium PCR Not detected Stl E.coli Shiga Tox PCR Not detected St Sh/Enteroin Ecoli PCR Not detected Stool E coli O157 PCR Not detected Stl Enterotoxigenic E PCR Not detected Stool EPEC (PCR) Not detected Stl E. histolytica PCR Not detected Stool Giardia Lamblia PCR Not detected Stool Sapovirus (PCR) Not detected Stl P. shigelloides PCR Not detected St Y.enterocolitica PCR Not detected Stool Vibrio (PCR) Not detected Stl Vibrio cholerae PCR Not detected Stl Enteroaggr Ecoli PCR Not detected Stl Norovirus GI/GII PCR Not detected Campylobacter (PCR) Not detected C. difficile Tox (PCR) Not detected Salmonella (PCR) Not detected 12/01/18 12/01/18 12/01/18 11:40 15:25 Unknown WBC RBC Hgb Hct MCV MCH MCHC RDW Plt Count Neut % (Auto) Lymph % (Auto) [place] % (Auto) Eos % (Auto) Baso % (Auto) Neut # (Auto) Lymph # (Auto) [place] # (Auto) Eos # (Auto) Baso # (Auto) Sodium Potassium Chloride Carbon Dioxide BUN Creatinine Estimated GFR BUN/Creatinine Ratio Glucose Lactate 2.1 Calcium Total Bilirubin AST ALT Alkaline Phosphatase Total Protein Albumin Globulin Albumin/Globulin Ratio Lipase Procalcitonin TSH 7.86 H Nasal Screen MRSA (PCR) Negative for mrsa Stl C. cayetanensis PCR Stool Rotavirus (PCR) Stool Adenovirus (PCR) Stool Astrovirus (PCR) Stool Cryptosporidium PCR Stl E.coli Shiga Tox PCR St Sh/Enteroin Ecoli PCR Stool E coli O157 PCR Stl Enterotoxigenic E PCR Stool EPEC (PCR) Stl E. histolytica PCR Stool Giardia Lamblia PCR Stool Sapovirus (PCR) Stl P. shigelloides PCR St Y.enterocolitica PCR Stool Vibrio (PCR) Stl Vibrio cholerae PCR Stl Enteroaggr Ecoli PCR Stl Norovirus GI/GII PCR Campylobacter (PCR) C. difficile Tox (PCR) Salmonella (PCR) 12/02/18 12/02/18 04:50 04:50 WBC 8.3 RBC 4.20 L Hgb 13.0 L Hct 37.9 L MCV 90.3 MCH 31.0 MCHC 34.3 RDW 13.1 Plt Count 220 Neut % (Auto) 79.3 H Lymph % (Auto) 11.0 L [place] % (Auto) 7.4 Eos % (Auto) 2.0 Baso % (Auto) 0.3 Neut # (Auto) 6600 Lymph # (Auto) 900 L [place] # (Auto) 600 Eos # (Auto) 200 Baso # (Auto) 0 Sodium 136 L Potassium 3.1 L Chloride 104 Carbon Dioxide 25 BUN 27 H Creatinine 1.20 Estimated GFR 58.7 L BUN/Creatinine Ratio 22.5 H Glucose 153 H Lactate Calcium 8.5 Total Bilirubin 0.4 AST 25 ALT 24 Alkaline Phosphatase 49 Total Protein 6.7 Albumin 3.6 Globulin 3.1 Albumin/Globulin Ratio 1.2 Lipase Procalcitonin TSH Nasal Screen MRSA (PCR) Stl C. cayetanensis PCR Stool Rotavirus (PCR) Stool Adenovirus (PCR) Stool Astrovirus (PCR) Stool Cryptosporidium PCR Stl E.coli Shiga Tox PCR St Sh/Enteroin Ecoli PCR Stool E coli O157 PCR Stl Enterotoxigenic E PCR Stool EPEC (PCR) Stl E. histolytica PCR Stool Giardia Lamblia PCR Stool Sapovirus (PCR) Stl P. shigelloides PCR St Y.enterocolitica PCR Stool Vibrio (PCR) Stl Vibrio cholerae PCR Stl Enteroaggr Ecoli PCR Stl Norovirus GI/GII PCR Campylobacter (PCR) C. difficile Tox (PCR) Salmonella (PCR) Assessment & Plan (1) Diarrhea: Problem details: Patient presents with diarrhea, present on admission. No evidence of infectious etiology at this time. Will hold fiber and MiraLax. Will also obtain an x-ray to rule out dilated loops of bowel. Will continue to follow up on laboratory studies. Stool studies remain negative. ABD Xray revealed some dilated loops of bowel. Diarrhea essentially resolved Qualifiers: Diarrhea type: unspecified type Qualified Code(s): R19.7 - Diarrhea, unspecified Current visit: Yes Status: Acute (2) Generalized weakness: Problem details: Suspect related to diarrhea and dehydration. Will advance diet and hold fluids Current visit: Yes Status: Acute (3) Hypokalemia: Problem details: Will replace potassium Current visit: Yes Status: Acute (4) Acute kidney injury: Problem details: Acute kidney injury, present on admission, acute suspect due to diarrhea and dehydration. Acute Kidney injury, now resolved with hydration. Will heplock IVF Current visit: Yes Status: Acute (5) Multiple sclerosis: Problem details: Patient will continue on his usual medications for MS including M why RB ET RI keys Current visit: Yes Status: Acute (6) Dementia: Problem details: Baseline Current visit: No Status: Acute (7) HTN (hypertension): Problem details: Patient is hypertensive, present on admission, acute Will continue usual lisinopril Current visit: No Status: Acute (8) Acquired hypothyroidism: Problem details: TSH is elevated, will add cytomel to his regimen Current visit: No Status: None Plan: Assessment/Plan Narrative: Physical Therapy consult, perhaps home today if he tolerates diet with no further nausea or diarrhea Quality VTE Deep Vein Thrombosis/Pulmonary Embolism Present on Admission: No
[2018-12-02] MEDS: POTASSIUM CHLORIDE 20 MEQ/15 ML UDC 40 MEQ PO (13:35)
[2018-12-02] MEDS: LIOTHYRONINE 5 MCG TABLET PO (13:35)
--- NOTE | 2018-12-02 14:56 | PT.IIE ---
Current Diagnoses Hypothyroidism, unspecified (12/01/18) Mixed hyperlipidemia (12/01/18) Hypokalemia (12/01/18) Unspecified dementia without behavioral disturbance (12/01/18) Multiple sclerosis (12/01/18) Essential (primary) hypertension (12/01/18) Other constipation (12/01/18) Acute kidney failure, unspecified (12/01/18) Diarrhea, unspecified (12/01/18) Weakness (12/01/18) Surgical History (Last Reviewed 12/01/18 @ 11:22 by Helen Ortiz MD) No pertinent past surgical history (Acute) Medical History (Last Updated 12/01/18 @ 16:06 by Chula Hsu MD) Multiple sclerosis (Acute) HTN (hypertension) (Acute) Dementia (Acute) Physical Therapy Inpatient Evaluation/Re-Eval M1 PT/OT-IP Prior Functional Status Start: 12/02/18 16:49 Freq: NEEDED Status: Active Protocol: Document 12/02/18 14:56 AB (Rec: 12/02/18 17:03 AB [id number]) Medical Review Prior Functional Status Medical History Reviewed Yes Communication able to make needs known Mobility and Gait pt stated that he is independent with all mobilities and ambulation without AD; occasionally uses a SPC for outdoor mobility depending on how he feels Prior Functional Level (Other details) h/o frequent falls: stated that he has >3 falls in the last 6 months uses a R AFO but does not use it at all times Social History Household Members spouse Living Arrangements House Number of Floors (Floors) One Floor Number of Stairs To Enter/Railing? 4 steps to enter with bilateral rails Home Environment High Toilet Walk in Shower Home Equipment Front Wheel Walker Straight Cane Hand Held Shower Grab Bars Near Toilet Grab Bars In Shower Additional Social History Comment stated that he has a L side bed rail at home M2 PT-IP Current Condition Start: 12/02/18 16:49 Freq: NEEDED Status: Active Protocol: Document 12/02/18 14:56 AB (Rec: 12/02/18 17:03 AB [id number]) Physical Therapy Current Condition Current Condition Evaluation Date 12/02/18 Treatment Diagnosis diarrhea; weakness Onset Date 12/01/18 Precautions Other Precautions Falls M3 PT-IP Subjective Start: 12/02/18 16:49 Freq: NEEDED Status: Active Protocol: Document 12/02/18 14:56 AB (Rec: 12/02/18 17:03 AB [id number]) Subjective Physical Therapy Visit Type Type Initial Evaluation Visit Start Time 14:56 Visit Stop Time 15:27 Total Visit Minutes 31 Number of INSULATION BOARD CALENDER OPERATOR Visits 0 Physical Therapy Visit Comments Patient Comments pt agreeable to do PT Therapy Pain Assessment Pain Present Pain Present Denied Pain M4 PT-IP Mobility and Gait Start: 12/02/18 16:49 Freq: NEEDED Status: Active Protocol: Document 12/02/18 14:56 AB (Rec: 12/02/18 17:03 AB [id number]) PT-Bed Mobility Assessment Supine to Sit Supine to Sit Moderate Assistance 1 Person Assistance Bedrails PT-Transfer Assessment Sit to and From Stand Sit to and from Stand Moderate Assistance Maximum Assistance 1 Person Assistance Use of Upper Extremities Equipment Transfer Assistive Device Gait Belt Front Wheeled Walker Orthotic/Prosthetic Devices or Brace: No Transfers Transfer Destination Toilet Transfer Technique pt ambulated to the toilet Transfer Ability Level of Assist Minimal Assistance 1 Person Assistance Use of Upper Extremities Gait Assessment Gait Gait Assistance Required: Minimum Assistance Distance (Feet) 10 Able to Maintain Weight Bearing Status Yes During Gait Assistive Devices Assistive Device Gait Belt Front Wheeled Walker Orthotic/Prosthetic Devices or Brace: No Gait Deviations General Gait Pattern Ataxic Decreased Stride Length Decreased Feet Clearance Factors Limiting Gait Function Factors Limiting Gait Function Decreased Activity Tolerance Decreased Strength Limited Range of Motion Poor Balance Poor Safety Awareness Comments Gait Comments informed nurse that pt needs to be cleaned up and changed. pt completed supine to sit mod A and cues and used side of FWW as bed rail with PT assisting to stabilize FWW . pt was able to sit on EOB min A with LOB posteriorly requiring assist and cues to lean forward. pt completed sit to stand mod/max A and max cues and needed 3 attempts to complete task. pt ambulated to the toilet using FWW min A with shuffling ataxic gait requiring cues to increase LE elevation and step length. pt was able to maintain standing using FWW for support min A while NAC assist with setting up commode for pt. pt tolerated ~ 4 min of standing. Left pt with NAC. PT-Balance Assessment Sitting Balance and Reactions Static Sitting Balance Ability Fair Dynamic Sitting Balance Ability Fair Standing Balance and Reactions Static Standing Balance Ability Fair Dynamic Standing Balance Ability Poor Device Used FWW M5 PT-IP Objective Assessments Start: 12/02/18 16:49 Freq: NEEDED Status: Active Protocol: Document 12/02/18 14:56 AB (Rec: 12/02/18 17:03 AB [id number]) Orientation Orientation/Cognition Level of Alertness Alert Orientation Name Age Birthday Place Situation Safety Awareness Decreased Safety Awareness Memory Description Short Term Impaired Gross Range of Motion Lower Extremity ROM Assessment Within Functional Limits Strength Lower Extremity Strength Assessment Bilaterally Impaired Comments Strength Comments RLE 3+/5 LLE: 4-/5 M6 PT-IP Treatment Start: 12/02/18 16:49 Freq: NEEDED Status: Active Protocol: Document 12/02/18 14:56 AB (Rec: 12/02/18 17:03 AB [id number]) Physical Therapy Treatment Education Education Provided Precautions Safety M7 PT-IP Assessment and Plan Start: 12/02/18 16:49 Freq: NEEDED Status: Active Protocol: Document 12/02/18 14:56 AB (Rec: 12/02/18 17:03 AB [id number]) PT Summary Assessment and Plan Potential Rehabilitation Potential Fair Status of Condition at Evaluation Evolving Summary Impairments Strength Balance Coordination Tone Cognition Bed Mobility Transfers Gait Activity Tolerance Assessment Summary pt requires mod to max A with transfers at this time. d/c plan depending on progress but at this time will require SNF rehab to improve strength and standing balance/tolerance to improve functional independence prior to d/c home . Goals Bed Mobility Goal Standby Assistance Transfer Goal Standby Assistance Front Wheeled Walker Gait Goal Standby Assistance Front Wheel Walker Gait Distance 150 Other Goals up/down 4 steps using bilateral rails SBA Days to Meet Goals 5 Frequency of Treatment Frequency Of Treatment Once a Day Treatment Plan Physical Therapy Treatment Plan Bed Mobility Training Transfer Training Gait Training Therapeutic Exercise Balance Retraining Discharge Planning Neuromuscular Re-ed Coordination Retraining Manual Therapy Other Recommendations and Next Treatment bed mobility, sit<> stand, Focus trunk control activities, ambulation, stair climbing Recommendations To Nursing Amount of Assist Needed 2 Person Assist Discharge Recommendations PT Discharge Recommendations SNF Rehab
[2018-12-02] MEDS: DIPHENOXYLATE/ATROP 2.5/0.025 TABLET 2 EACH PO (18:21)
[2018-12-02] MEDS: MELATONIN 3 MG TABLET 6 MG PO (21:19)
[2018-12-03 04:00] VITALS: BP 129/80; PULSE 68; RESP 18; TEMP 36.7; O2SAT 98
[2018-12-03] MEDS: LEVOTHYROXINE 75 MCG TABLET PO (06:16)
[2018-12-03] MEDS: LEVOTHYROXINE 100 MCG TABLET PO (06:16)
[2018-12-03] MEDS: LIOTHYRONINE 5 MCG TABLET PO (08:33)
[2018-12-03] MEDS: FENOFIBRATE 48 MG TABLET PO (08:33)
[2018-12-03] MEDS: VENLAFAXINE ER 75 MG CAP 225 MG PO (08:33)
[2018-12-03 08:34] VITALS: BP 135/72
[2018-12-03] MEDS: ASPIRIN EC 81 MG TABLET PO (08:34)
[2018-12-03] MEDS: LISINOPRIL 20 MG TABLET PO (08:34)
[2018-12-03] MEDS: AMLODIPINE 5 MG TABLET PO (08:34)
[2018-12-03] MEDS: ENOXAPARIN 40 MG/0.4 ML SYRINGE SUBCUT (08:34)
[2018-12-03] MEDS: TAMSULOSIN 0.4 MG CAPSULE 0.8 MG PO (08:34)
[2018-12-03 09:11] LABS: BUN Creatinine Ratio 16.4 (6-22); Blood Urea Nitrogen 18 mg/dL (9-20); Calcium 8.8 mg/dL (8.4-10.2); Carbon Dioxide 28 mmol/L (22-32); Chloride 99 mmol/L (98-107); Estimated Glomerular Filt Rate > 60.0 mL/min (>60); Glucose 184 mg/dL (80-110); HEMOLYSIS < 15 (0-50); Potassium 3.2 mmol/L (3.4-5.1); Sodium 137 mmol/L (137-145)
[2018-12-03 09:28] LABS: T4 Total Thyroxine 7.33 ug/dL (5.5-11.0)
[2018-12-03 09:39] VITALS: BP 135/72; PULSE 65; RESP 16; TEMP 37.3; O2SAT 94
--- NOTE | 2018-12-03 10:10 | PT.IPTN ---
Current Diagnoses Hypothyroidism, unspecified (12/01/18) Mixed hyperlipidemia (12/01/18) Hypokalemia (12/01/18) Unspecified dementia without behavioral disturbance (12/01/18) Multiple sclerosis (12/01/18) Essential (primary) hypertension (12/01/18) Other constipation (12/01/18) Acute kidney failure, unspecified (12/01/18) Diarrhea, unspecified (12/01/18) Weakness (12/01/18) Physical Therapy Treatment Note M2 PT-IP Current Condition Start: 12/02/18 16:49 Freq: NEEDED Status: Active Protocol: Document 12/02/18 14:56 AB (Rec: 12/02/18 17:03 AB [id number]) Physical Therapy Current Condition Current Condition Evaluation Date 12/02/18 Treatment Diagnosis diarrhea; weakness Onset Date 12/01/18 Precautions Other Precautions Falls M3 PT-IP Subjective Start: 12/02/18 16:49 Freq: NEEDED Status: Active Protocol: Document 12/03/18 10:10 AB (Rec: 12/03/18 13:03 AB [id number]) Subjective Physical Therapy Visit Type Type Treatment Note Visit Start Time 10:10 Visit Stop Time 11:04 Total Visit Minutes 54 Number of QUALITY ASSURANCE NURSE Visits 0 Physical Therapy Visit Comments Patient Comments pt agreeable to do PT M4 PT-IP Mobility and Gait Start: 12/02/18 16:49 Freq: NEEDED Status: Active Protocol: Document 12/03/18 10:10 AB (Rec: 12/03/18 13:03 AB [id number]) PT-Bed Mobility Assessment Supine to Sit Supine to Sit Maximum Assistance 1 Person Assistance Bedrails Sit to Supine Sit to Supine Moderate Assistance 1 Person Assistance PT-Transfer Assessment Sit to and From Stand Sit to and from Stand Maximum Assistance 1 Person Assistance Use of Upper Extremities Equipment Transfer Assistive Device Gait Belt Front Wheeled Walker Transfers Transfer Destination Bed Bedside Commode Transfer Ability Level of Assist Maximum Assistance Use of Upper Extremities Comments Mobility Comments pt completed bed mobility supine to sit max A and max cues and used bed rail to assist. pt with increase posterior leaning sitting on EOb and requires cues to correct position and pt able but requires constant cues to maintain. pt completed sit to stand max A and max cues and completed step pivot transfer to bedside commode. Pt's spouse arrived. assisted pt back to bed and completed sit to stand from commode mod to max A and transferred to bed using FWW. informed spouse regarding pt's level of assistance and caregiver training initiated. educated spouse on how to use gait belt and how to assist pt. pt completed bed mobility with spouse assisting. Spouse also brought in pt's Bioness machine and assisted pt with donning on RLE. pt completed ambulation with spouse assisting. noted intentional tremors on/ off during tx session. Gait Assessment Gait Gait Assistance Required: Minimum Assistance 1 Person Assist Distance (Feet) 75 Able to Maintain Weight Bearing Status Yes During Gait Assistive Devices Assistive Device Gait Belt Front Wheeled Walker Orthotic/Prosthetic Devices or Brace: Yes Gait Deviations General Gait Pattern Decreased Stride Length Decreased Feet Clearance Festinating Narrow Based Gait Step-to Gait Factors Limiting Gait Function Factors Limiting Gait Function Abnormal Tonal Influences Decreased Activity Tolerance Decreased Strength Difficulty Following Directions Limited Range of Motion Pain Poor Balance Poor Safety Awareness Comments Gait Comments pt completed ambulation using FWW ~ 75 ft with spouse assisting. PT occasionally provides CGA for safety and cues to increase LE elevation and step width and length. educated spouse to cue pt appropriately. M5 PT-IP Objective Assessments Start: 12/02/18 16:49 Freq: NEEDED Status: Active Protocol: Document 12/02/18 14:56 AB (Rec: 12/02/18 17:03 AB [id number]) Orientation Orientation/Cognition Level of Alertness Alert Orientation Name Age Birthday Place Situation Safety Awareness Decreased Safety Awareness Memory Description Short Term Impaired Gross Range of Motion Lower Extremity ROM Assessment Within Functional Limits Strength Lower Extremity Strength Assessment Bilaterally Impaired Comments Strength Comments RLE 3+/5 LLE: 4-/5 M6 PT-IP Treatment Start: 12/02/18 16:49 Freq: NEEDED Status: Active Protocol: Document 12/03/18 10:10 AB (Rec: 12/03/18 13:03 AB [id number]) Physical Therapy Treatment Education Education Provided Safety M7 PT-IP Assessment and Plan Start: 12/02/18 16:49 Freq: NEEDED Status: Active Protocol: Document 12/03/18 10:10 AB (Rec: 12/03/18 13:03 AB [id number]) PT Summary Assessment and Plan Potential Rehabilitation Potential Fair Summary Impairments ROM Strength Balance Coordination Sensation Tone Cognition Bed Mobility Transfers Gait Activity Tolerance Progress Towards Goals Slow Progress due to Medical Issues Assessment Summary pt requiring one person assist with mobility. pt is inconsistent with mobility depending on fatigue level. Caregiver training conducted and spouse expressed concerns regarding d/c home. informed manager case management and manager case management talked to pt. informed the doctor that pt will need SNF rehab. Goals Bed Mobility Goal Standby Assistance Transfer Goal Standby Assistance Front Wheeled Walker Gait Goal Standby Assistance Front Wheel Walker Gait Distance 150 Other Goals up/down 4 steps using bilateral rails SBA Days to Meet Goals 5 Frequency of Treatment Frequency Of Treatment Twice a Day Treatment Plan Physical Therapy Treatment Plan Bed Mobility Training Transfer Training Gait Training Therapeutic Exercise Balance Retraining Discharge Planning Neuromuscular Re-ed Coordination Retraining Manual Therapy Other Recommendations and Next Treatment bed mobility, sit<> stand, Focus trunk control activities, ambulation, stair climbing Recommendations To Nursing Amount of Assist Needed 2 Person Assist Discharge Recommendations PT Discharge Recommendations SNF Rehab
--- NOTE | 2018-12-03 10:10 | PT.IPTN ---
Current Diagnoses Hypothyroidism, unspecified (12/01/18) Mixed hyperlipidemia (12/01/18) Hypokalemia (12/01/18) Unspecified dementia without behavioral disturbance (12/01/18) Multiple sclerosis (12/01/18) Essential (primary) hypertension (12/01/18) Other constipation (12/01/18) Acute kidney failure, unspecified (12/01/18) Diarrhea, unspecified (12/01/18) Weakness (12/01/18) Physical Therapy Treatment Note M2 PT-IP Current Condition Start: 12/02/18 16:49 Freq: NEEDED Status: Active Protocol: Document 12/02/18 14:56 AB (Rec: 12/02/18 17:03 AB [id number]) Physical Therapy Current Condition Current Condition Evaluation Date 12/02/18 Treatment Diagnosis diarrhea; weakness Onset Date 12/01/18 Precautions Other Precautions Falls M3 PT-IP Subjective Start: 12/02/18 16:49 Freq: NEEDED Status: Active Protocol: Document 12/03/18 10:10 AB (Rec: 12/03/18 13:03 AB [id number]) Subjective Physical Therapy Visit Type Type Treatment Note Visit Start Time 10:10 Visit Stop Time 11:04 Total Visit Minutes 54 Number of RESTAURANT LEAD Visits 0 Physical Therapy Visit Comments Patient Comments pt agreeable to do PT M4 PT-IP Mobility and Gait Start: 12/02/18 16:49 Freq: NEEDED Status: Active Protocol: Document 12/03/18 10:10 AB (Rec: 12/03/18 13:03 AB [id number]) PT-Bed Mobility Assessment Supine to Sit Supine to Sit Maximum Assistance 1 Person Assistance Bedrails Sit to Supine Sit to Supine Moderate Assistance 1 Person Assistance PT-Transfer Assessment Sit to and From Stand Sit to and from Stand Maximum Assistance 1 Person Assistance Use of Upper Extremities Equipment Transfer Assistive Device Gait Belt Front Wheeled Walker Transfers Transfer Destination Bed Bedside Commode Transfer Ability Level of Assist Maximum Assistance Use of Upper Extremities Comments Mobility Comments pt completed bed mobility supine to sit max A and max cues and used bed rail to assist. pt with increase posterior leaning sitting on EOb and requires cues to correct position and pt able but requires constant cues to maintain. pt completed sit to stand max A and max cues and completed step pivot transfer to bedside commode. Pt's spouse arrived. assisted pt back to bed and completed sit to stand from commode mod to max A and transferred to bed using FWW. informed spouse regarding pt's level of assistance and caregiver training initiated. educated spouse on how to use gait belt and how to assist pt. pt completed bed mobility with spouse assisting. Spouse also brought in pt's Bioness machine and assisted pt with donning on RLE. pt completed ambulation with spouse assisting. noted intentional tremors on/ off during tx session. Gait Assessment Gait Gait Assistance Required: Minimum Assistance 1 Person Assist Distance (Feet) 75 Able to Maintain Weight Bearing Status Yes During Gait Assistive Devices Assistive Device Gait Belt Front Wheeled Walker Orthotic/Prosthetic Devices or Brace: Yes Gait Deviations General Gait Pattern Decreased Stride Length Decreased Feet Clearance Festinating Narrow Based Gait Step-to Gait Factors Limiting Gait Function Factors Limiting Gait Function Abnormal Tonal Influences Decreased Activity Tolerance Decreased Strength Difficulty Following Directions Limited Range of Motion Pain Poor Balance Poor Safety Awareness Comments Gait Comments pt completed ambulation using FWW ~ 75 ft with spouse assisting. PT occasionally provides CGA for safety and cues to increase LE elevation and step width and length. educated spouse to cue pt appropriately. M5 PT-IP Objective Assessments Start: 12/02/18 16:49 Freq: NEEDED Status: Active Protocol: Document 12/02/18 14:56 AB (Rec: 12/02/18 17:03 AB [id number]) Orientation Orientation/Cognition Level of Alertness Alert Orientation Name Age Birthday Place Situation Safety Awareness Decreased Safety Awareness Memory Description Short Term Impaired Gross Range of Motion Lower Extremity ROM Assessment Within Functional Limits Strength Lower Extremity Strength Assessment Bilaterally Impaired Comments Strength Comments RLE 3+/5 LLE: 4-/5 M6 PT-IP Treatment Start: 12/02/18 16:49 Freq: NEEDED Status: Active Protocol: Document 12/03/18 10:10 AB (Rec: 12/03/18 13:03 AB [id number]) Physical Therapy Treatment Education Education Provided Safety M7 PT-IP Assessment and Plan Start: 12/02/18 16:49 Freq: NEEDED Status: Active Protocol: Document 12/03/18 10:10 AB (Rec: 12/03/18 13:03 AB [id number]) PT Summary Assessment and Plan Potential Rehabilitation Potential Fair Summary Impairments ROM Strength Balance Coordination Sensation Tone Cognition Bed Mobility Transfers Gait Activity Tolerance Progress Towards Goals Slow Progress due to Medical Issues Assessment Summary pt requiring one person assist with mobility. pt is inconsistent with mobility depending on fatigue level. Caregiver training conducted and spouse expressed concerns regarding d/c home. informed sample case porter and sample case porter talked to pt. informed the doctor that pt will need SNF rehab. Goals Bed Mobility Goal Standby Assistance Transfer Goal Standby Assistance Front Wheeled Walker Gait Goal Standby Assistance Front Wheel Walker Gait Distance 150 Other Goals up/down 4 steps using bilateral rails SBA Days to Meet Goals 5 Frequency of Treatment Frequency Of Treatment Once a Day Treatment Plan Physical Therapy Treatment Plan Bed Mobility Training Transfer Training Gait Training Therapeutic Exercise Balance Retraining Discharge Planning Neuromuscular Re-ed Coordination Retraining Manual Therapy Other Recommendations and Next Treatment bed mobility, sit<> stand, Focus trunk control activities, ambulation, stair climbing Recommendations To Nursing Amount of Assist Needed 2 Person Assist Discharge Recommendations PT Discharge Recommendations SNF Rehab
[2018-12-03] MEDS: POTASSIUM CHLORIDE 20 MEQ TAB 40 MEQ PO (10:46)
--- NOTE | 2018-12-03 11:35 | CM.DPC ---
Addendum entered by Halie García ANTHONY 12/03/18 13:57: Call from [facility]/Cha: able to accept patient and they obtained SNF auth from [employer]. Met with spouse and patient: they have confirmed dtg/Desirae is able to come up from [place] and ride [place] with family and assist spouse with entering the house. Desirae will stay with patient over the weekend. Family's plan is to discharge around 1800 to catch [employer]. Updated family on SNF options and family would like to discharge home w/ HH. Called [facility]: They will be about to provide HH PT/OT beginning on Thursday. CM/[facility] faxed referral. Patient still to work with PT on stair climbing and pending OT eval. Will follow up with family following PT/OT sessions to confirm discharge plan based of PT/OT recommendations. Original Note: DCP/cont Met with patient, spouse, and PT/Candie to discuss DCP. Patient remains in OBS with payer [facility]. Plan is uncertain between Home w/ HH vs SNF. PT recommends SNF at this time. OT eval ordered to better eval safe discharge needs. If discharging home, safety concerns surround patient's physical weakness following a ferry ride to [facility] and his inability to safely climb 5 stairs to enter house with only spouse's support. Patient to attempt stair training with PT in PM session. Spouse will contact daughter and son to see if either are a possible option to assist with entering home. Both things are uncertain and are a cause for concerns for both patient's safety and spouse's. Discussed SNF options with patient and Medicare Choice List. Family would like to contact [facility] to see if they will be able to accept patient and gain auth from [employer] for short term stay. stated a possible 3-4days private pay stay may be possible depending on anne and if she can get guarantee that patient will receive physical rehab over weekend. Called [facility]/Cha: She will put in urgent auth request to [employer] and send PT notes and document pending OT eval. Face sheet faxed for [facility] to review for possible acceptance today pending auth. Plan: Home w/ HH vs SNF. Barriers include SNF auth needed from [employer] and lack of support for patient enter house via stairs. SW closely following.
[2018-12-03] MEDS: NYSTATIN POWDER 30 GM 1 APPLIC TOP (13:00)
--- NOTE | 2018-12-03 14:36 | P.DS_ITS ---
History of Present Illness Chief complaint: Diarrhea for two days Narrative: Patient is a 78-year-old male with a history of multiple sclerosis, hypertension, hyperlipidemia who has chronic constipation. He usually takes fiber and MiraLax for constipation. Six days ago, the patient had a hamburger and oysters for his birthday, which was followed by fatigue, which was not uncommon due to his MS, and would normally subside with rest. Five days ago he developed diarrhea which progressed from 1-2 per day up to 4-7 per day the day before admission. He had no blood in the stool. He had no crampy abdominal pain. He had no fever or chills the patient had no associated nausea or vomiting. They are not on well water. There have been no recent antibiotics. There has been no recent travel. There are no others ill at home. In it he initially presented to the clinic on the [place] where it was noted that his lactate was elevated. Patient was airlifted to [facility] for further evaluation. Discharge Providers Date of admission: 12/01/18 14:29 Primary care physician: Uriel Ruiz MD Consults: 12/02/18 12:08 Consult to Physical Therapy Evaluate & Treat Comment: Physician Instructions: Evaluate and Treat 12/03/18 11:16 Consult to Occupational Therapy Evaluate & Treat Comment: Physician Instructions: Evaluate and treat 12/03/18 14:25 Consult to Home Health Routine Comment: Reason For Exam: PT/OT Discharge provider: Connie Collins MD Discharge Date: 12/03/18 Summary Hospital Course: Patient admitted with abrupt onset diarrhea, nausea, and vomiting. He had fewer and fewer bowel movements each day down to 1 on the day of discharge. The day before discharge, the patient has had no further nausea or vomiting. He was anxious to progress his diet and tolerated it well. He denies shortness of breath, abdominal pain, or nausea. He was noted to be weak with physical therapy, and needed 2 person assistance when climbing stairs. The patient was noted to be hypokalemic and potassium was replaced in the hospital. He also has acquired hypothyroidism and was noted to have an elevated TSH which prompted initiation of T3, with a T3 level pending. His MS is evident on physical exam and for prior help upon discharge. Status at Discharge Functional status at discharge: independent ambulation (With 2 person assist with stairs) Overall status at discharge: patient is back to baseline Time Spent with Patient Greater than 30 minutes Exam Vital Signs (past 8 hours): - 12/03/18 08:34 12/03/18 09:39 Temperature 99.2 F Pulse Rate 65 Respiratory Rate 16 Blood Pressure 135/72 135/72 Pulse Oximetry 94 Oxygen Delivery Method Room Air Oxygen Flow Rate 0 Const General: cooperative and healthy appearing Nutritional Appearance: average body habitus Orientation: alert, awake and oriented x3 HENMT Head: normal to inspection Ears: hearing grossly normal bilaterally and external ears normal Nose: external nose normal and nares normal Face and sinus: normal facial exam Mouth: oral mucosae normal and lip normal Teeth and gingiva: dentition normal and gingiva normal Throat: posterior oropharynx normal Eyes General: appearance normal, both eyes and all related structures Eyelids: eyelids normal Conjunctivae: conjunctivae normal Sclera: sclerae normal Cornea: corneas normal Pupils: PERRL EOM: EOM intact bilaterally Neck Neck: normal visual inspection Thyroid: thyroid normal Chest Chest: normal inspection of the chest Resp Effort & Inspection: normal respiratory effort, able to speak in complete sentences, no cough, not labored, no stridor and not tachypneic Auscultation: clear to auscultation bilaterally, no rales, no rhonchi, no wheezes, no rubs and no vesicular sounds Tactile Fremitus: tactile fremitus absent Cardio Palpation: normal PMI Rate: regular rate Rhythm: regular rhythm Heart Sounds: S1 normal, S2 normal, no click, no gallops, no murmurs and no rubs GI Inspection: normal to inspection Palpation: soft, no hepatosplenomegaly, No firm, No guarding, No hepatomegaly and No splenomegaly Percussion: normal to percussion Auscultation: normal bowel sounds Rectal Exam: visual inspection normal Skin General: no rashes or lesions noted Neuro General: alert, awake and oriented x3 Other: Patient is weak upon standing, slow and weak with ambulation, consistent with his diagnosis of multiple sclerosis. Extrem General: normal to inspection Right upper extremity: normal to inspection Left upper extremity: normal to inspection Right lower extremity: normal to inspection Left lower extremity: normal to inspection Psych Appearance: grossly normal Mental Status: mental status grossly normal Mood: congruent mood Affect: normal affect Attitude: cooperative Thought Process: normal Thought Content: normal Objective Labs Result Diagrams: 12/02/18 04:50 12/03/18 08:17 Labs: Laboratory Results - last 24 hr 12/03/18 12/03/18 08:17 08:17 Sodium 137 Potassium 3.2 L Chloride 99 Carbon Dioxide 28 BUN 18 Creatinine 1.10 Estimated GFR > 60.0 BUN/Creatinine Ratio 16.4 Glucose 184 H Calcium 8.8 Thyroxine (T4) 7.33 Discharge Plan Discharge Plan Patient Disposition: Home Discharge comment: He will need 2 person assistance for steps and other maneuvers in the house. He will need to follow up the elevated TSH with his primary care doctor. The cytomel is a new drug, with an actual T3 level still pending. You will also need a BMP in one week because your potassium was low because of the diarrhea. Discharge Med Rec/Prescriptions Prescriptions: New nystatin [Nystop] 100,000 unit/gram Powder 1 applic Topical TID PRN (Reason: Rash) Qty: 1 RF: 0 liothyronine [Cytomel] 5 mcg tablet 5 mcg PO DAILY Qty: 30 RF: 0 Continue mirabegron [Myrbetriq] 50 MG tablet extended release 24 hr 50 mg PO QAM Qty: 0 RF: 0 aspirin 81 MG tablet,delayed release (DR/EC) 81 mg PO QPM Qty: 0 RF: 0 acetaminophen 325 MG tablet 325 mg PO PRN PRN (Reason: pain) Qty: 0 RF: 0 cholecalciferol (vitamin D3) [Vitamin D3] 2,000 UNIT tablet 5,000 iu PO QPM Qty: 0 RF: 0 chlorthalidone 25 MG tablet 25 mg PO QAM Qty: 90 RF: 3 levothyroxine 175 MCG tablet 0.175 mg PO QAM Qty: 90 RF: 0 amlodipine 5 mg Tablet 5 mg PO QAM RF: 0 fenofibrate nanocrystallized 48 mg Tablet 48 mg PO QPM RF: 0 venlafaxine 75 mg Tablet Extended Release 24hr 75 mg PO QAM RF: 0 Fiber (psyllium husk) 2 tab PO BEDTIME RF: 0 tamsulosin [Flomax] 0.4 MG capsule 0.8 mg PO BEDTIME RF: 0 venlafaxine 150 MG tablet extended release 24hr 150 mg PO QAM RF: 0 lisinopril 20 mg Tablet 20 mg PO BEDTIME RF: 0 melatonin 5 mg Tablet 5 mg PO BEDTIME RF: 0 polyethylene glycol 3350 [Miralax] 17 gram/dose Powder 17 g PO DAILY PRN (Reason: Constipation) RF: 0 Follow up/Referrals: rUiel Ruiz MD [Primary Care Provider] - 1 Week (Primary are clinic on [facility] Provider Discharge Instructions Diet: Regular Discharge Data Primary Care Provider: Uriel Ruiz Attending Provider: Chula Hsu Admit Date/Time: 12/01/18 14:29 Quality VTE Deep Vein Thrombosis/Pulmonary Embolism Present on Admission: No
--- NOTE | 2018-12-03 15:20 | PT.IPTN ---
Current Diagnoses Hypothyroidism, unspecified (12/01/18) Mixed hyperlipidemia (12/01/18) Hypokalemia (12/01/18) Unspecified dementia without behavioral disturbance (12/01/18) Multiple sclerosis (12/01/18) Essential (primary) hypertension (12/01/18) Other constipation (12/01/18) Acute kidney failure, unspecified (12/01/18) Diarrhea, unspecified (12/01/18) Weakness (12/01/18) Physical Therapy Treatment Note M2 PT-IP Current Condition Start: 12/02/18 16:49 Freq: NEEDED Status: Active Protocol: Document 12/02/18 14:56 AB (Rec: 12/02/18 17:03 AB [id number]) Physical Therapy Current Condition Current Condition Evaluation Date 12/02/18 Treatment Diagnosis diarrhea; weakness Onset Date 12/01/18 Precautions Other Precautions Falls M3 PT-IP Subjective Start: 12/02/18 16:49 Freq: NEEDED Status: Active Protocol: Document 12/03/18 16:10 GGD (Rec: 12/03/18 16:18 GGD [id number]) Subjective Physical Therapy Visit Type Type Treatment Note Visit Start Time 14:45 Visit Stop Time 15:20 Total Visit Minutes 25 Number of MALT HOUSE LOADER Visits 1 Physical Therapy Visit Comments Patient Comments Pt in bathroom with FABRICATION MACHINE OPERATOR. M4 PT-IP Mobility and Gait Start: 12/02/18 16:49 Freq: NEEDED Status: Active Protocol: Document 12/03/18 16:10 GGD (Rec: 12/03/18 16:18 GGD [id number]) PT-Bed Mobility Assessment Supine to Sit Supine to Sit Minimal Assistance 1 Person Assistance Bedrails Sit to Supine Sit to Supine Minimal Assistance 1 Person Assistance Bedrails Scooting Scooting to Edge of Bed Standby Assistance PT-Transfer Assessment Sit to and From Stand Sit to and from Stand Minimal Assistance 1 Person Assistance Use of Upper Extremities Equipment Transfer Assistive Device Gait Belt Front Wheeled Walker Transfers Transfer Destination Bed Transfer Ability Level of Assist Minimal Assistance Use of Upper Extremities Comments Mobility Comments caregiver training for bed mobility and sit to stand Gait Assessment Gait Gait Assistance Required: Minimum Assistance 1 Person Assist Distance (Feet) 10 Assistive Devices Assistive Device Gait Belt Front Wheeled Walker Orthotic/Prosthetic Devices or Brace: Yes Gait Deviations General Gait Pattern Decreased Stride Length Decreased Feet Clearance Festinating Narrow Based Gait Step-to Gait Factors Limiting Gait Function Factors Limiting Gait Function Abnormal Tonal Influences Decreased Activity Tolerance Decreased Strength Difficulty Following Directions Limited Range of Motion Pain Poor Balance Poor Safety Awareness M5 PT-IP Objective Assessments Start: 12/02/18 16:49 Freq: NEEDED Status: Active Protocol: Document 12/02/18 14:56 AB (Rec: 12/02/18 17:03 AB [id number]) Orientation Orientation/Cognition Level of Alertness Alert Orientation Name Age Birthday Place Situation Safety Awareness Decreased Safety Awareness Memory Description Short Term Impaired Gross Range of Motion Lower Extremity ROM Assessment Within Functional Limits Strength Lower Extremity Strength Assessment Bilaterally Impaired Comments Strength Comments RLE 3+/5 LLE: 4-/5 M6 PT-IP Treatment Start: 12/02/18 16:49 Freq: NEEDED Status: Active Protocol: Document 12/03/18 16:10 GGD (Rec: 12/03/18 16:18 GGD [id number]) Physical Therapy Treatment Education Education Provided Safety M7 PT-IP Assessment and Plan Start: 12/02/18 16:49 Freq: NEEDED Status: Active Protocol: Document 12/03/18 16:10 GGD (Rec: 12/03/18 16:18 GGD [id number]) PT Summary Assessment and Plan Summary Assessment Summary Pt improving with mobility. Caregiver training conducted and spouse was able to safely assist pt. Pt would benefit from continue PT for strengthening and functional mobility. Frequency of Treatment Frequency Of Treatment Twice a Day Treatment Plan Physical Therapy Treatment Plan Bed Mobility Training Transfer Training Gait Training Therapeutic Exercise Balance Retraining Discharge Planning Neuromuscular Re-ed Coordination Retraining Manual Therapy Other Recommendations and Next Treatment bed mobility, sit<> stand, Focus trunk control activities, ambulation, stair climbing Recommendations To Nursing Amount of Assist Needed 2 Person Assist Discharge Recommendations PT Discharge Recommendations Home with 01/06 Assist SNF Rehab
[2018-12-03 16:00] VITALS: BP 160/73; PULSE 66; RESP 20; TEMP 37.5; O2SAT 93
--- NOTE | 2018-12-03 16:32 | OT.IP.EVAL ---
Current Diagnoses Hypothyroidism, unspecified (12/01/18) Mixed hyperlipidemia (12/01/18) Hypokalemia (12/01/18) Unspecified dementia without behavioral disturbance (12/01/18) Multiple sclerosis (12/01/18) Essential (primary) hypertension (12/01/18) Other constipation (12/01/18) Acute kidney failure, unspecified (12/01/18) Diarrhea, unspecified (12/01/18) Weakness (12/01/18) Past Medical History (Last Updated 12/01/18 @ 16:06 by Chula Hus MD) Multiple sclerosis (Acute) HTN (hypertension) (Acute) Dementia (Acute) Surgical History (Last Reviewed 12/01/18 @ 11:22 by Helen Ortiz MD) No pertinent past surgical history (Acute) Occupational Therapy Inpatient Evaluation/Re-Eval M1 PT/OT-IP Prior Functional Status Start: 12/02/18 16:49 Freq: NEEDED Status: Active Protocol: Document 12/02/18 14:56 AB (Rec: 12/02/18 17:03 AB [id number]) Medical Review Prior Functional Status Medical History Reviewed Yes Communication able to make needs known Mobility and Gait pt stated that he is independent with all mobilities and ambulation without AD; occasionally uses a SPC for outdoor mobility depending on how he feels Prior Functional Level (Other details) h/o frequent falls: stated that he has >3 falls in the last 6 months uses a R AFO but does not use it at all times Social History Household Members spouse Living Arrangements House Number of Floors (Floors) One Floor Number of Stairs To Enter/Railing? 4 steps to enter with bilateral rails Home Environment High Toilet Walk in Shower Home Equipment Front Wheel Walker Straight Cane Hand Held Shower Grab Bars Near Toilet Grab Bars In Shower Additional Social History Comment stated that he has a L side bed rail at home M1 PT/OT-IP Prior Functional Status Start: 12/03/18 16:02 Freq: NEEDED Status: Active Protocol: Document 12/03/18 16:02 [facility] (Rec: 12/03/18 16:30 [facility] [id number]) Medical Review Prior Functional Status Medical History Reviewed Yes Communication able to make needs known Mobility and Gait pt stated that he is independent with all mobilities and ambulation without AD; occasionally uses a SPC for outdoor mobility depending on how he feels Activities of Daily Living and IADL's Pt's states pending his MS at times assist with pt's LB dressing needs. Prior Functional Level (Other details) h/o frequent falls: stated that he has >3 falls in the last 6 months uses a R AFO but does not use it at all times Social History Household Members spouse Living Arrangements House Number of Floors (Floors) One Floor Number of Stairs To Enter/Railing? 4 steps to enter with bilateral rails Home Environment High Toilet Walk in Shower Home Equipment Front Wheel Walker Straight Cane Hand Held Shower Grab Bars Near Toilet Grab Bars In Shower Additional Social History Comment stated that he has a L side bed rail at home M2 OT-IP Current Condition Start: 12/03/18 16:02 Freq: Status: Active Protocol: Document 12/03/18 16:02 [facility] (Rec: 12/03/18 16:30 [facility] [id number]) Occupational Therapy Current Condition Current Condition Evaluation Date 12/03/18 Treatment Diagnosis Diarrhea, weakness Diagnosis Onset Date 12/01/18 M3 OT- IP Subjective and Pain Start: 12/03/18 16:02 Freq: Status: Active Protocol: Document 12/03/18 16:02 [facility] (Rec: 12/03/18 16:30 [facility] [id number]) OT- Subjective Occupational Therapy Visit Type Type Initial Evaluation Visit Start Time 14:53 Visit Stop Time 15:23 Total Visit Minutes 30 Occupational Therapy Visit Comments Patient Comments Pt wanting to go home. Pt's states feels better about taking him home as will have additional assist of Desirae, daughter to come and stay to help. M4 OT- IP ADL's Start: 12/03/18 16:02 Freq: Status: Active Protocol: Document 12/03/18 16:02 [facility] (Rec: 12/03/18 16:30 [facility] [id number]) OT [id number] Comments OT Self-Feeding Comments Pt states has trouble to hold utensils and suggested pt use of larger utensils or foam to place on utensils. Suggested pt work on functional activities to help imiprove BUE strength and FMS. Pt's states pt just content to watch tv with his dogs. OT ADL-Dressing General Eval Lower Body Dressing Ability Maximum Assistance Areas Needing Assistance Underpants/Brief Shoes Comments OT Dressing Comments Pt dependent for LB dressing needs at this time. Educated to siena right LE first as does not move as well as left LE. Pt states to start wearing his R AFO. OT ADL-Toileting General Evaluation Toileting Ability Maximum Assistance Areas Needing Assistance Manage Clothing Perform Perineal Hygiene Devices Toileting Assistive Devices Commode Grab Bars Comments OT Toileting Comments Pt MAX A for all hygiene and LB dressing at this time due to pt's weakness. Pt wears brief at home, suggetsed to bring urinal home. OT ADL-Bathing Comments OT Bathing Comments Pt's states has walk in shower with grab bars to assist to get pt into the shower. Suggested pt to get shower chair or just sponge off if needed if too tired. M5 OT- IP IADL's Start: 12/03/18 16:02 Freq: Status: Active Protocol: Document 12/03/18 16:02 [facility] (Rec: 12/03/18 16:30 [facility] [id number]) OT-Instrumental Activities of Daily Living Meal Preparation Meal Preparation Caregiver Provides Assist Manager Review Manager Review Caregiver Provides Assist Driving Driving Caregiver Provides Assist M6 OT- IP Functional Cognition Start: 12/03/18 16:02 Freq: Status: Active Protocol: Document 12/03/18 16:02 [facility] (Rec: 12/03/18 16:30 [facility] [id number]) Cognitive Factors Limiting Selfcare Function Cognitive Ability Level of Alertness Alert Patient Orientation Name Place Situation Attention Span Ability Capable of Focused Attention Capable of Sustained Attention Ability to Follow Commands Able to Follow One Step Commands Memory Description Short Term Impaired Safety Awareness Underestimates Need for Assistance Cognitive Comments Cognitive Assessment Comments VC for FWW safety, techniques for bed mobility, and cues for sit to stand. M7 OT- IP Mobility and Balance Start: 12/03/18 16:02 Freq: Status: Active Protocol: Document 12/03/18 16:02 [facility] (Rec: 12/03/18 16:30 [facility] [id number]) OT- Bed Mobility Assessment Rolling Type of Rolling Roll to Left Level of Assistance Minimal Assistance Bedrails Supine to Sit Supine to Sit Assist Moderate Assistance 1 Person Assistance OT-Transfer Assessment Sit to and From Stand Sit to and from Stand Contact Guard Assistance Minimal Assistance Transfers Transfer Ability Minimal Assistance 1 Person Assistance Technique Transfer Destination Chair Toilet Transfer Technique Stand Step Pivot Devices Transfer Assistive Devices Gait Belt Front Wheeled Walker Comments Mobility Comments Pt needing DEMETRIA to come to stand and vc to lean forwards when coming up to stand. Pt's able to show good understanding and safety to be able to assist pt for all Adl and functional mobility needs . For fear of pt getting too tired, pt and stating not wanting to practice the steps and have a good set-up and plenty of assist to get up the stairs later tonight. OT- Balance Assessment Sitting Balance and Reactions Static Sitting Balance Ability Good Dynamic Sitting Balance Ability Fair M8 OT- IP Objective Assessments Start: 12/03/18 16:02 Freq: Status: Active Protocol: Document 12/03/18 16:02 [facility] (Rec: 12/03/18 16:30 [facility] [id number]) OT- Coordination Assessment Comments Coordination Comments Per pt decreased use of hands for eating to hold utensils. Pt needs assist for set-up for needs. OT-Muscle Tone Assessment Comments Muscle Tone Comments Noted tremors when trying ot stand. M9 OT- IP Assessment and Plan Start: 12/03/18 16:02 Freq: Status: Active Protocol: Document 12/03/18 16:02 [facility] (Rec: 12/03/18 16:30 [facility] [id number]) OT Summary Assessment and Plan Potential Rehabilitation Potential Good Analytic Complexity at Evaluation Low Summary OT Impairments Balance Coordination Functional Cognition Functional Mobility Self-Feeding Grooming Dressing Toileting Bathing Toilet Transfers Shower Transfers Progress Towards Goals Slow Progress due to Medical Issues Slow Progress due to Activity Tolerance Slow Progress due to Cognition Assessment Summary Pt low complexity and main barrier is weakness, decreased balance, and now needing assist for all Adl's and functional moblity. Pt's has been trained to assist pt for all needs however to have daughter come to stay and assist , therefore pt and wanting to go home today versus skilled rehab. Goals Grooming Goal Standby Assistance Dressing Goal Standby Assistance Toileting Goal Standby Assistance Bathing Goal Moderate Assistance Toilet Transfer Goal Contact Guard Assistance Shower Transfer Goal Minimal Assistance Patient/Caregiver Education Goal Caregiver Independent Assisting Patient Days to Meet Goals 3 Frequency of Treatment Frequency Of Treatment Once a Day Treatment Plan OT Treatment Plan ADL Training Functional Cognition Training Functional Mobility Patient/Family Education Discharge Planning Other Treatment Recommendations and Next Shower Treatment Focus Discharge Recommendations OT Discharge Recommendations Home with 01/06 Assist Home Health SNF Rehab Other Discharge Recommendations Pt would benefit from skilled rehab to increase independence and safety for all Adl and fucntional mobility, however pt and to have daughter come and assist and therefore deciding to go home. Home Equipment Needs Shower chair
--- NOTE | 2018-12-03 18:05 | PC.NURSE ---
pt discharged to home with and daughter. Sent pt wearing gait belt for easier transfer to vehicle. Discharge packet reviewed with pt's .
[2018-12-04 19:14] LABS: Triiodothyronine T3 Total 51 ng/dL (76-181)
--- NOTE | 2018-12-05 15:04 | CM.DPC ---
DCP: addendum: received a call this morning from from a family member: Tiana: [phone]. She sounded tearful over the phone and said that pt had not done well since his d/c home. She said that Halie had set up a spot for pt at [facility] and that the [facility] Medicare Adv plan had authorized the admission but we decided to try to care for him at home. We find that we just cannot do everything that is needed for him and we need help. Tiana identified that she hoped to have pt go to [facility]. Explained that since this was Thursday it was unclear of pt could be accepted there today (they live on [address] and the insurance company is not available over weekend) but Thursday might well be doable. Tiana replied that she understood. Agreed to call [facility]/done. Spoke with [employer] Spooler Navid and then had 3 conversations with Tiana re specifics of the pending admission. Followed up with Navid just now....He anticipates [facility] will be able to take pt tomorrow once all is confirmed with the insurance/needed authorization.
== END 2018-12-03 18:15 | disposition home or self-care (01) ==
LOC: ED 12:36 → ICU 14:50
PROVIDERS: Family Medicine; Admitting Provider Internal Medicine; Emergency Provider Emergency Medicine; PCP Family Medicine; Visit Provider Internal Medicine
DX: R19.7 Diarrhea, unspecified (principal); R53.1 Weakness; R11.2 Nausea with vomiting, unspecified; G35 Multiple sclerosis; F03.90 Unspecified dementia, unspecified severity, without behavioral disturbance, psychotic disturbance, mood disturbance, and anxiety; E03.9 Hypothyroidism, unspecified; E78.2 Mixed hyperlipidemia; N17.9 Acute kidney failure, unspecified; E87.6 Hypokalemia; K59.09 Other constipation; I10 Essential (primary) hypertension; E86.0 Dehydration
CPT/HCPCS: 36415; 51798; 71045; 74019; 80048; 80053; 83605; 83690; 84145; 84436; 84443; 84480; 85025; 85610; 85730; 87040; 87507; 87797; 93005; 96361; 96374; 97162; 97165; 97530; 99284; 99285; G0378; J1650; J2405; J3480

== ENCOUNTER 2018-12-17 20:47 | Emergency (ER) | payer MEDICARE, SELFPAY ==
[2018-12-01 16:00] VITALS: BMI 27.6
--- NOTE | 2018-12-17 20:52 | DI.RAD.S_ITS ---
PROCEDURE: XR ABDOMEN 1V INDICATIONS: Vomiting and constipation TECHNIQUE: One view of the abdomen acquired. COMPARISON: None. FINDINGS: Surgical changes and devices: None. Bowel: Bowel gas pattern is nonobstructive. Large amount of stool seen in the rectal vault. Soft tissues: No suspicious abdominal calcifications. Visualized solid organ contours appear normal in size. Bones: No suspicious bony lesions. Lower lumbar spondylosis and bilateral hip joint degeneration. IMPRESSION: No definite bowel obstruction or specific transition point. Large amount of dense stool within the rectal vault suggesting fecal impaction/constipation. Dictated by: Matias Allison M.D. on 12/17/2018 at 21:38 Approved by: Matias Allison M.D. on 12/17/2018 at 21:39
--- NOTE | 2018-12-17 20:52 | ED.NAVMDI ---
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 They gave him some nausea medicine earlier today he states that he feels better at this time. No nausea or vomiting at this time. He denies any abdominal pain. No flank pain. No urinary symptoms. No fevers no chills. He states his last bowel movement was earlier today and was a large bowel movement. He reports having some constipation over the past several days prior to this. No other concerns or complaints at this time. MD complaint: vomiting Related Data Home Medications Medication Instructions Recorded Confirmed Myrbetriq 50 mg PO QAM #0 11/04/16 12/17/18 aspirin 81 mg PO QPM #0 11/04/16 12/17/18 acetaminophen 325 mg PO PRN PRN #0 12/02/16 12/17/18 cholecalciferol (vitamin D3) 5,000 iu PO QPM #0 12/02/16 12/17/18 [Vitamin D3] Fiber (psyllium husk) 2 tab PO BEDTIME 12/01/18 12/17/18 amlodipine 5 mg PO QAM 12/01/18 12/17/18 fenofibrate nanocrystallized 48 mg PO QPM 12/01/18 12/17/18 lisinopril 20 mg PO BEDTIME 12/01/18 12/17/18 melatonin 5 mg PO BEDTIME 12/01/18 12/17/18 polyethylene glycol 3350 [Miralax] 17 g PO DAILY PRN 12/01/18 12/17/18 tamsulosin [Flomax] 0.8 mg PO BEDTIME 12/01/18 12/17/18 venlafaxine 75 mg PO QAM 12/01/18 12/17/18 venlafaxine 150 mg PO QAM 12/01/18 12/17/18 metformin 1,000 mg PO BID 12/17/18 12/17/18 metformin 500 mg PO BID 12/17/18 12/17/18 ondansetron HCl [Zofran] 4 mg PO QID PRN 12/17/18 12/17/18 Previous Rx's Medication Instructions Recorded chlorthalidone 25 mg PO QAM #90 tab 12/10/16 levothyroxine 0.175 mg PO QAM #90 tab 07/06/17 liothyronine [Cytomel] 5 mcg PO DAILY #30 tab 12/03/18 magnesium citrate 296 ml PO .once PRN #296 ml 12/17/18 Allergies Allergy/AdvReac Type Severity Reaction Status Date / Time solifenacin [From [facility]] AdvReac Unknown change in Verified 12/17/18 21:00 rai status Review of Systems <NANCY Marcano - Last Filed: 12/17/18 22:09> Constitutional Denies chills, Denies fever(s), Denies lethargy and Denies weakness Eyes Denies change in vision, Denies eye discharge, Denies irritation and Denies loss of vision ENT Ears, Nose, Mouth, and Throat: Denies change in voice, Denies neck pain and Denies sore throat Cardiovascular Denies chest pain, Denies irregular heart rhythm, Denies lightheadedness, Denies palpitations, Denies dyspnea, Denies dyspnea on exertion and Denies orthopnea Respiratory Denies cough, Denies dyspnea, Denies dyspnea on exertion and Denies wheezing Gastrointestinal Gastrointestinal: Reports constipation and Reports vomiting Genitourinary Denies hematuria, Denies flank pain, Denies urinary incontinence and Denies urinary urgency Musculoskeletal Denies neck pain Integumentary/Breasts Denies pruritus, Denies erythema, Denies rash and Denies wounds Neurologic Denies confusion, Denies loss of vision and Denies weakness Psychiatric Denies anxiety, Denies confusion, Denies depression, Denies homicidal ideation and Denies suicidal ideation Endocrine Denies palpitations Hematologic/Lymphatic Denies easy bruising Allergic/Immunologic Denies wheezing PFSH <NANCY Marcano - Last Filed: 12/17/18 22:09> Medical History Multiple sclerosis (Acute) HTN (hypertension) (Acute) Dementia (Acute) Surgical History No pertinent past surgical history (Acute) Social History household members: spouse Smoking Status: Unknown if ever smoked Social History household members: spouse Smoking Status: Unknown if ever smoked Exam <NANCY Marcano - Last Filed: 12/17/18 22:09> Initial Vital Signs Initial Vital Signs: Vital Signs Temperature 98.2 F 12/17/18 20:54 Pulse Rate 86 12/17/18 20:54 Respiratory Rate 18 12/17/18 20:54 Blood Pressure 141/67 H 12/17/18 20:54 Pulse Oximetry 96 12/17/18 20:54 Const General: cooperative and well developed Nutritional Appearance: well nourished Orientation: alert, awake, oriented x3 and not confused HENMT Mouth: oral mucosae normal and moist mucous membranes Throat: posterior oropharynx normal Eyes Conjunctivae: conjunctivae normal Sclera: sclerae normal Pupils: PERRL EOM: EOM intact bilaterally Resp Effort & Inspection: normal respiratory effort, able to speak in complete sentences, no respiratory distress and no use of accessory muscles Auscultation: clear to auscultation bilaterally, no rales, no rhonchi and no wheezes Cardio Rate: regular rate Rhythm: regular rhythm Heart Sounds: no click, no gallops, no murmurs and no rubs Pulses: normal peripheral pulses GI Inspection: non-distended Palpation: soft, no hepatosplenomegaly, No guarding, No pulsatile mass and No tender Auscultation: normal bowel sounds Skin General: no rashes or lesions noted, No jaundice and No petechiae Neuro General: alert, awake and oriented x3 Speech: speech normal Extrem General: full ROM, no clubbing, cyanosis or edema, no pedal edema and no calf tenderness <Tyler Crisostomo DO - Last Filed: 12/17/18 23:33> Initial Vital Signs Initial Vital Signs: Vital Signs Temperature 98.2 F 12/17/18 20:54 Pulse Rate 86 12/17/18 20:54 Respiratory Rate 18 12/17/18 20:54 Blood Pressure 141/67 H 12/17/18 20:54 Pulse Oximetry 96 12/17/18 20:54 Course <NANCY Marcano - Last Filed: 12/17/18 22:09> Orders Ordered: ED Orders 12/17/18 20:52 XR abdomen 1V Stat Discontinued Medications Ondansetron HCl (Zofran Odt) 4 mg SL NOW ONE Stop: 12/17/18 20:54 Vital Signs - 8 hr 12/17/18 20:54 12/17/18 22:39 Temperature 98.2 F Pulse Rate 86 82 Respiratory Rate 18 Blood Pressure 141/67 H Blood Pressure [Left Arm] 136/74 Pulse Oximetry 96 96 <Tyler Crisostomo DO - Last Filed: 12/17/18 23:33> Orders Ordered: ED Orders 12/17/18 20:52 XR abdomen 1V Stat Discontinued Medications Ondansetron HCl (Zofran Odt) 4 mg SL NOW ONE Stop: 12/17/18 20:54 Vital Signs - 8 hr 12/17/18 20:54 12/17/18 22:39 Temperature 98.2 F Pulse Rate 86 82 Respiratory Rate 18 Blood Pressure 141/67 H Blood Pressure [Left Arm] 136/74 Pulse Oximetry 96 96 MDM - Nausea/Vomiting/Diarrhea <NANCY Marcano - Last Filed: 12/17/18 22:09> MDM Narrative Medical decision making narrative: X-ray the abdomen shows no signs of bowel obstruction. However there is some good stool loading a indicating constipation. He is prescribed Mag citrate for constipation. He was p.o. challenged in the emergency room was able tolerate fluids. He is declining any nausea vomiting or discomfort at this time. He has returned over to care facility for care. Follow up with primary care provider. Return emergency room for any worsening symptoms. Discharge Plan Departure Patient Disposition: Home Clinical Impression: Vomiting Qualifiers: Vomiting type: unspecified Vomiting Intractability: non-intractable Nausea presence: without nausea Qualified Code(s): R11.11 - Vomiting without nausea Constipation Qualifiers: Constipation type: unspecified constipation type Qualified Code(s): K59.00 - Constipation, unspecified Discharge Date/Time: 12/17/18 22:46 Interventions: ED Discharge Assessment Last Done: 12/17/18 22:44 Instructions: DI for Constipation Activity Restrictions/Additional Instructions: x-ray the abdomen was obtained was negative for any signs of bowel obstruction. Does show that there is good stool loading in side the bowels. Will treat for exacerbation of chronic constipation with magnesium citrate use as directed follow up with primary care provider in the next few days for re-evaluation. Use already prescribed Zofran as needed for any nausea. For any worsening symptoms return to the emergency room. Prescriptions: New magnesium citrate solution 296 ml PO .once PRN (Reason: constipation) Qty: 296 RF: 0 No Action Myrbetriq 50 MG tablet extended release 24 hr 50 mg PO QAM Qty: 0 RF: 0 aspirin 81 MG tablet,delayed release (DR/EC) 81 mg PO QPM Qty: 0 RF: 0 acetaminophen 325 MG tablet 325 mg PO PRN PRN (Reason: pain) Qty: 0 RF: 0 cholecalciferol (vitamin D3) [Vitamin D3] 2,000 UNIT tablet 5,000 iu PO QPM Qty: 0 RF: 0 chlorthalidone 25 MG tablet 25 mg PO QAM Qty: 90 RF: 3 levothyroxine 175 MCG tablet 0.175 mg PO QAM Qty: 90 RF: 0 amlodipine 5 mg Tablet 5 mg PO QAM RF: 0 fenofibrate nanocrystallized 48 mg Tablet 48 mg PO QPM RF: 0 venlafaxine 75 mg Tablet Extended Release 24hr 75 mg PO QAM RF: 0 Fiber (psyllium husk) 2 tab PO BEDTIME RF: 0 tamsulosin [Flomax] 0.4 MG capsule 0.8 mg PO BEDTIME RF: 0 venlafaxine 150 MG tablet extended release 24hr 150 mg PO QAM RF: 0 lisinopril 20 mg Tablet 20 mg PO BEDTIME RF: 0 melatonin 5 mg Tablet 5 mg PO BEDTIME RF: 0 polyethylene glycol 3350 [Miralax] 17 gram/dose Powder 17 g PO DAILY PRN (Reason: Constipation) RF: 0 liothyronine [Cytomel] 5 mcg tablet 5 mcg PO DAILY Qty: 30 RF: 0 metformin 500 mg Tablet 500 mg PO BID RF: 0 ondansetron HCl [Zofran] 4 mg Tablet 4 mg PO QID PRN (Reason: Nausea) RF: 0 metformin 1,000 mg Tablet 1,000 mg PO BID RF: 0 Referrals: Uriel Ruiz MD [Primary Care Provider] - <Tyler Crisostomo DO - Last Filed: 12/17/18 23:33> Cosign ED Attending Cosignature Attestation: I was available for consultation during this patient's emergency department encounter
[2018-12-17 20:54] VITALS: BP 141/67; PULSE 86; RESP 18; TEMP 36.8; O2SAT 96; BMI 24.3
[2018-12-17 22:39] VITALS: BP 136/74; PULSE 82; O2SAT 96
== END 2018-12-17 22:46 | disposition home or self-care (01) ==
PROVIDERS: Emergency Provider Nurse Practitioner Family; PCP Family Medicine
DX: R11.10 Vomiting, unspecified (principal); K59.00 Constipation, unspecified
CPT/HCPCS: 74018; 99282; 99283